=== PATIENT | male | born 1960 | race African-American/Black ===

== ENCOUNTER 2016-10-16 16:39 | Inpatient (IN) | payer MEDICAID ==
[~2016-10-16] VITALS: Ht 180.3 cm; Wt 96.2 kg
[~2016-10-16 16:39] MED LIST: ASPI-1035 PO; ATOR10TA PO; CARV6.2548 PO; DIGO250T81 PO; FLUT1DIS3 INH; FURO40TA5 PO; LISI40TA4 PO; POTA20TA82 PO; SPIR25TA4 PO
[2016-10-16 17:48] LABS: BASOPHILS % 1.1 % (0.0-2.0); EOSINOPHILS % 6.9 % (0.0-5.0); HEMATOCRIT. 44.7 % (42.0-52.0); HEMOGLOBIN. 14.8 g/dL (14.0-18.0); LYMPHOCYTES % 37.9 % (20.0-50.0); MEAN CORPUSCULAR HEMOGLOBIN 29.3 pg (28.0-32.0); MEAN CORPUSCULAR VOLUME 88.8 fL (80.0-94.0); MEAN PLATELET VOLUME 9.8 fl (7.4-10.4); MONOCYTES % 6.6 % (2.0-8.0); NEUTROPHILS % 47.5 % (40.0-76.0); PLATELET 111 x1000/uL (130-400); RED BLOOD CELL COUNT 5.04 mill/uL (4.7-6.1); RED CELL DISTRIBUTION WIDTH 16.2 % (11.6-14.6); WHITE BLOOD COUNT 5.7 x1000/uL (4.5-11.0)
[2016-10-16 17:56] LABS: INR 1.1; PROTHROMBIN TIME 10.9 sec
[2016-10-16 18:02] LABS: ALANINE AMINOTRANSFERASE 16 IU/L (13-61); ALBUMIN 3.6 g/dL (3.4-5.0); ANION GAP 13; CALCIUM 8.6 mg/dL (8.5-10.1); CARBON DIOXIDE 23 mEq/L (21-32); CHLORIDE 112 mEq/L (98-107); INDEX HEMOLYSI 1 (1-3); INDEX ICTERIC 1 (1-4); INDEX LIPEMIC 1 (1-3); NT PRO B-TYPE NATRIURETIC PEP 777 pg/mL (5-125); TROPONIN I 0.04 ng/mL (0.00-0.04); UREA NITROGEN BLOOD 18 mg/dL (7-21); eGFR > 60 mL/min (>60)
[2016-10-16 18:18] LABS: DIGOXIN 0.1 ng/mL (0.9-2.0)
[2016-10-16] MEDS ORDERED: ASPIRIN 81MG TABLET PO ONE (20:30)
[2016-10-16 23:15] VITALS: BP 169/118
[2016-10-16] MEDS ORDERED: ALBU2.5V13 IH (23:19)
[2016-10-16] MEDS ORDERED: Proair HFA INH (23:19)
[2016-10-16 23:30] VITALS: BP 169/118
[2016-10-16] MEDS ORDERED: IPRATROPIUM/ALBUTEROL 0.5-3(2.5)MG/3ML NEB HHN PRN (23:30)
[2016-10-16] MEDS ORDERED: MEDICATION NOT ON FORMULARY EA (Fluticasone/Salmeterol (Advair 250-50 Diskus) 1 PUFF) INH SCH (23:30)
[2016-10-16] MEDS ORDERED: MORPHINE SULFATE 2 MG/ML CPJ (NOT FOR IM USE) IV PRN (23:30)
[2016-10-16] MEDS ORDERED: CLONIDINE 0.1MG TABLET PO PRN (23:30)
[2016-10-16] MEDS: CARVEDILOL 6.25 MG TABLET PO SCH (23:42)
[2016-10-17] MEDS: ALBUTEROL (0.083%) 2.5MG/3ML NEB HHN SCH ×4 (01:46→20:39)
[2016-10-17 04:00] VITALS: BP 136/84
[2016-10-17] MEDS ORDERED: ALBUTEROL (0.083%) 2.5MG/3ML NEB HHN SCH (06:00)
[2016-10-17 06:06] LABS: ANION GAP 15; CALCIUM 8.3 mg/dL (8.5-10.1); CARBON DIOXIDE 21 mEq/L (21-32); CHLORIDE 113 mEq/L (98-107); INDEX HEMOLYSI 1 (1-3); INDEX ICTERIC 1 (1-4); INDEX LIPEMIC 1 (1-3); LDL CHOLESTEROL 106 mg/dL (5-100); UREA NITROGEN BLOOD 17 mg/dL (7-21); eGFR > 60 mL/min (>60)
[2016-10-17 07:13] LABS: BASOPHILS % 1.1 % (0.0-2.0); EOSINOPHILS % 8.1 % (0.0-5.0); HEMOGLOBIN. 14.7 g/dL (14.0-18.0); LYMPHOCYTES % 43.9 % (20.0-50.0); MEAN CORPUSCULAR HEMOGLOBIN 29.4 pg (28.0-32.0); MEAN CORPUSCULAR HGB CONC 33.3 g/dL (31.0-37.0); MEAN CORPUSCULAR VOLUME 88.2 fL (80.0-94.0); MEAN PLATELET VOLUME 10.2 fl (7.4-10.4); MONOCYTES % 7.5 % (2.0-8.0); NEUTROPHILS % 39.4 % (40.0-76.0); PLATELET 115 x1000/uL (130-400); RED BLOOD CELL COUNT 4.99 mill/uL (4.7-6.1); RED CELL DISTRIBUTION WIDTH 15.9 % (11.6-14.6); WHITE BLOOD COUNT 5.6 x1000/uL (4.5-11.0)
[2016-10-17] MEDS: BUDESONIDE 0.5MG/2ML NEB HHN SCH ×2 (07:42→20:39)
[2016-10-17 08:00] VITALS: BP 149/111
[2016-10-17 08:31] LABS: *AMPHETAMINES SCREEN URINE NEGATIVE (NEGATIVE); *BARBITURATES SCREEN URINE NEGATIVE (NEGATIVE); *BENZODIAZEPINES SCREEN URINE NEGATIVE (NEGATIVE); *COCAINE SCREEN URINE NEGATIVE (NEGATIVE); CANNABINOID URINE SCREEN PRESUMTIVE POSITIVE (NEGATIVE); ECSTASY MDMA SCREEN URINE NEGATIVE (NEGATIVE); METHADONE URINE SCREEN NEGATIVE (NEGATIVE); OPIATES URINE SCREEN NEGATIVE (NEGATIVE); PHENCYCLIDINE URINE SCREEN NEGATIVE (NEGATIVE)
[2016-10-17] MEDS: FUROSEMIDE 40MG/4ML VIAL IVP SCH (09:13)
[2016-10-17] MEDS: ASPIRIN 81MG EC TABLET PO SCH (09:13)
[2016-10-17] MEDS: POTASSIUM CHLORIDE 20MEQ TABLET SR PO SCH ×2 (09:13→17:08)
[2016-10-17] MEDS: SPIRONOLACTONE 25MG TABLET PO SCH (09:14)
[2016-10-17] MEDS: LISINOPRIL 40MG TABLET PO SCH (09:14)
[2016-10-17] MEDS: CARVEDILOL 6.25 MG TABLET PO SCH ×2 (09:14→17:08)
[2016-10-17] MEDS ORDERED: ALBUTEROL (0.083%) 2.5MG/3ML NEB HHN PRN (11:15)
[2016-10-17] MEDS ORDERED: ALBUTEROL (0.083%) 2.5MG/3ML NEB HHN NR (11:29)
[2016-10-17 12:00] VITALS: BP 133/98
[2016-10-17] MEDS: ISOSORB DINIT/HYDRALAZINE HCL 20/37.5MG TABLET PO SCH ×3 (12:02→22:00)
[2016-10-17] MEDS: NICOTINE 7MG PATCH TD SCH (14:19)
[2016-10-17 16:00] VITALS: BP 102/65
[2016-10-17] MEDS: ACETAMINOPHEN 325MG TABLET PO PRN (16:56)
[2016-10-17] MEDS ORDERED: DIGOXIN 250MCG TABLET PO SCH (18:00)
[2016-10-17 20:00] VITALS: BP 96/63
[2016-10-17] MEDS ORDERED: ATORVASTATIN CALCIUM 10MG TABLET PO SCH ×2 (21:00)
[2016-10-17] MEDS ORDERED: GUAIFENESIN 200MG/10ML SUGAR FREE UDC PO PRN (22:45)
[2016-10-18] VITALS: BP 110/84
[2016-10-18] MEDS: ALBUTEROL (0.083%) 2.5MG/3ML NEB HHN SCH ×2 (02:47→08:27)
[2016-10-18 04:00] VITALS: BP 126/79
[2016-10-18] MEDS: ISOSORB DINIT/HYDRALAZINE HCL 20/37.5MG TABLET PO SCH (06:05)
[2016-10-18] MEDS: ACETAMINOPHEN 325MG TABLET PO PRN (06:06)
[2016-10-18 07:25] LABS: BASOPHILS % 0.8 % (0.0-2.0); EOSINOPHILS % 5.9 % (0.0-5.0); HEMATOCRIT. 44.9 % (42.0-52.0); MEAN CORPUSCULAR HEMOGLOBIN 29.4 pg (28.0-32.0); MEAN CORPUSCULAR HGB CONC 33.5 g/dL (31.0-37.0); MEAN CORPUSCULAR VOLUME 87.8 fL (80.0-94.0); MONOCYTES % 7.1 % (2.0-8.0); NEUTROPHILS % 56.2 % (40.0-76.0); PLATELET 123 x1000/uL (130-400); RED BLOOD CELL COUNT 5.12 mill/uL (4.7-6.1); RED CELL DISTRIBUTION WIDTH 15.8 % (11.6-14.6); WHITE BLOOD COUNT 7.2 x1000/uL (4.5-11.0)
[2016-10-18 07:48] LABS: ANION GAP 15; CALCIUM 8.9 mg/dL (8.5-10.1); CARBON DIOXIDE 22 mEq/L (21-32); CHLORIDE 108 mEq/L (98-107); INDEX HEMOLYSI 1 (1-3); INDEX ICTERIC 1 (1-4); INDEX LIPEMIC 1 (1-3); MAGNESIUM 2.4 mg/dL (1.8-2.4); UREA NITROGEN BLOOD 17 mg/dL (7-21); eGFR > 60 mL/min (>60)
[2016-10-18 08:00] VITALS: BP 101/69
[2016-10-18] MEDS: BUDESONIDE 0.5MG/2ML NEB HHN SCH (08:27)
[2016-10-18] MEDS: POTASSIUM CHLORIDE 20MEQ TABLET SR PO SCH (08:56)
[2016-10-18] MEDS: NICOTINE 7MG PATCH TD SCH (08:56)
[2016-10-18] MEDS: ASPIRIN 81MG EC TABLET PO SCH (08:56)
[2016-10-18] MEDS: SPIRONOLACTONE 25MG TABLET PO SCH (08:56)
[2016-10-18] MEDS: CARVEDILOL 6.25 MG TABLET PO SCH (08:56)
[2016-10-18] MEDS: LISINOPRIL 40MG TABLET PO SCH (08:57)
[2016-10-18] MEDS: FUROSEMIDE 40MG/4ML VIAL IVP SCH (08:57)
[2016-10-18] MEDS ORDERED: FURO40TA5 PO (11:40)
[2016-10-18] MEDS ORDERED: CARV6.2548 PO (11:40)
[2016-10-18] MEDS ORDERED: POTA20TA82 PO (11:40)
[2016-10-18] MEDS ORDERED: [UNRECOGNIZED DRUG - CODE] TD (11:40)
[2016-10-18] MEDS ORDERED: ASPI-1035 PO (11:40)
[2016-10-18] MEDS ORDERED: ATOR10TA PO (11:40)
[2016-10-18] MEDS ORDERED: DIGO250T81 PO (11:40)
[2016-10-18] MEDS ORDERED: SPIR25TA4 PO (11:40)
[2016-10-18] MEDS ORDERED: ALBU2.5V13 IH (11:40)
[2016-10-18] MEDS ORDERED: FLUT1DIS3 INH (11:40)
[2016-10-18] MEDS ORDERED: LISI40TA4 PO (11:40)
[2016-10-18 11:52] VITALS: BP 101/69
[2016-10-18 12:00] VITALS: BP 120/91
== END 2016-10-18 13:40 | disposition home or self-care (01) | DRG 199 ==
LOC: ER 17:47 → 7WST 21:28
PROVIDERS: ADMIT Internal Medicine; ATTEND Internal Medicine
DX: I10 Essential (primary) hypertension (principal); I50.43 Acute on chronic combined systolic (congestive) and diastolic (congestive) heart failure; I42.0 Dilated cardiomyopathy; J44.9 Chronic obstructive pulmonary disease, unspecified; E78.00 Pure hypercholesterolemia, unspecified; E66.9 Obesity, unspecified; F17.210 Nicotine dependence, cigarettes, uncomplicated; E78.5 Hyperlipidemia, unspecified; Z82.49 Family history of ischemic heart disease and other diseases of the circulatory system; Z95.810 Presence of automatic (implantable) cardiac defibrillator; Z79.82 Long term (current) use of aspirin; Z79.899 Other long term (current) drug therapy; Z68.29 Body mass index [BMI] 29.0-29.9, adult
CPT/HCPCS: 36415; 71010; 80048; 80053; 80162; 80305; 83721; 83735; 83880; 84484; 85025; 85610; 87804; 93005; 94640; 99285; J1940; J7611; J7620; J7626

== ENCOUNTER 2017-05-08 18:54 | Inpatient (IN) | payer MEDICAID, OTHER ==
[~2017-05-08] VITALS: Ht 180.3 cm; Wt 95.3 kg
[~2017-05-08 18:54] MED LIST changes: +ALBU2.5V13 IH; -ASPI-1035 PO; +ASPI-1159 PO; +NICO1PAT6 TD
[2017-05-08 21:11] LABS: BASOPHILS % 0.8 % (0.0-2.0); EOSINOPHILS % 5.8 % (0.0-5.0); HEMATOCRIT. 47.1 % (42.0-52.0); HEMOGLOBIN. 15.9 g/dL (14.0-18.0); LYMPHOCYTES % 30.5 % (20.0-50.0); MEAN CORPUSCULAR HEMOGLOBIN 29.2 pg (28.0-32.0); MEAN CORPUSCULAR VOLUME 86.6 fL (80.0-94.0); MEAN PLATELET VOLUME 10.3 fl (7.4-10.4); MONOCYTES % 6.3 % (2.0-8.0); NEUTROPHILS % 56.6 % (40.0-76.0); PLATELET 107 x1000/uL (130-400); RED BLOOD CELL COUNT 5.44 mill/uL (4.7-6.1); RED CELL DISTRIBUTION WIDTH 15.4 % (11.6-14.6)
[2017-05-08 21:17] LABS: D-DIMER 0.94 mg/L FEU (<0.50); INR 1.1; PARTIAL THROMBOPLASTIN TIME 26.6 sec (23.4-31.0); PROTHROMBIN TIME 11.4 sec (9.4-11.6)
[2017-05-08 21:23] LABS: CARBON DIOXIDE 23 mEq/L (21-32); CHLORIDE 111 mEq/L (98-107); CREATINE KINASE 148 IU/L (39-308); TROPONIN I 0.05 ng/mL (0.00-0.04)
[2017-05-09] MEDS ORDERED: MORPHINE SULFATE 4 MG/ML CPJ (NOT FOR IM USE) IV ONE (00:30)
[2017-05-09] MEDS ORDERED: ONDANSETRON HCL 4MG/2ML VIAL IV ONE (00:30)
[2017-05-09 04:40] VITALS: BP 152/110
[2017-05-09 05:00] VITALS: BP 152/110
[2017-05-09] MEDS: SODIUM CHLORIDE 0.9% 1,000 ML IV SCH (07:32)
[2017-05-09 07:36] LABS: CREATINE KINASE MB FRACTION 1.1 ng/mL (0.5-3.6); TROPONIN I 0.05 ng/mL (0.00-0.04)
[2017-05-09 08:29] VITALS: BP 152/114
[2017-05-09] MEDS: AMLODIPINE 10MG TABLET PO SCH ×2 (08:57→21:09)
[2017-05-09 12:00] VITALS: BP 135/105
[2017-05-09] MEDS: ALBUTEROL (0.083%) 2.5MG/3ML NEB HHN SCH ×2 (12:35→20:32)
[2017-05-09 17:00] VITALS: BP 150/116
[2017-05-09 18:10] LABS: CREATINE KINASE MB FRACTION 0.9 ng/mL (0.5-3.6); TROPONIN I 0.05 ng/mL (0.00-0.04)
[2017-05-09] MEDS ORDERED: MORPHINE SULFATE 2 MG/ML CPJ (NOT FOR IM USE) IV PRN (20:30)
[2017-05-09] MEDS ORDERED: CLONIDINE 0.1MG TABLET PO PRN (20:30)
[2017-05-09 21:13] LABS: CARBON DIOXIDE 22 mEq/L (21-32); CHLORIDE 110 mEq/L (98-107)
[2017-05-09 21:32] LABS: BASOPHILS % 0.6 % (0.0-2.0); EOSINOPHILS % 5.6 % (0.0-5.0); HEMATOCRIT. 48.9 % (42.0-52.0); HEMOGLOBIN. 16.4 g/dL (14.0-18.0); MEAN CORPUSCULAR HEMOGLOBIN 29.2 pg (28.0-32.0); MEAN PLATELET VOLUME 10.5 fl (7.4-10.4); MONOCYTES % 6.4 % (2.0-8.0); NEUTROPHILS % 58.4 % (40.0-76.0); PLATELET 110 x1000/uL (130-400); RED BLOOD CELL COUNT 5.62 mill/uL (4.7-6.1); RED CELL DISTRIBUTION WIDTH 15.5 % (11.6-14.6)
[2017-05-10] MEDS: SODIUM CHLORIDE 0.9% 1,000 ML IV SCH (00:17)
[2017-05-10] MEDS: ALBUTEROL (0.083%) 2.5MG/3ML NEB HHN SCH ×4 (01:59→21:21)
[2017-05-10 04:00] VITALS: BP 124/89
[2017-05-10 08:59] VITALS: BP 114/80
[2017-05-10] MEDS: AMLODIPINE 10MG TABLET PO SCH (09:04)
[2017-05-10] MEDS: ASPIRIN 81MG TABLET PO SCH (12:24)
[2017-05-10] MEDS: LOSARTAN POTASSIUM 50 MG TABLET PO SCH (12:24)
[2017-05-10] MEDS: ENOXAPARIN 40MG/0.4ML SYR SUBCUT SCH (12:25)
[2017-05-10 12:38] VITALS: BP 131/83
[2017-05-10 16:14] VITALS: BP 132/95
[2017-05-10 20:00] VITALS: BP 130/98
[2017-05-10] MEDS: CARVEDILOL 6.25 MG TABLET PO SCH (20:57)
[2017-05-11] VITALS: BP 104/69
[2017-05-11] MEDS: ALBUTEROL (0.083%) 2.5MG/3ML NEB HHN SCH ×4 (01:08→21:07)
[2017-05-11 04:00] VITALS: BP 130/98
[2017-05-11] MEDS: ASPIRIN 81MG TABLET PO SCH (08:53)
[2017-05-11] MEDS: ENOXAPARIN 40MG/0.4ML SYR SUBCUT SCH (08:53)
[2017-05-11] MEDS: LOSARTAN POTASSIUM 50 MG TABLET PO SCH (08:53)
[2017-05-11] MEDS: CARVEDILOL 6.25 MG TABLET PO SCH ×2 (08:53→20:32)
[2017-05-11] MEDS: AMLODIPINE 5MG TABLET PO SCH (08:53)
[2017-05-11 12:00] VITALS: BP 126/88
[2017-05-11 16:00] VITALS: BP_SYST 113; BP_SYST 130; BP_DIAS 76; BP_DIAS 89
[2017-05-11 20:00] VITALS: BP 124/89
[2017-05-12] VITALS: BP 100/66
[2017-05-12] MEDS: ALBUTEROL (0.083%) 2.5MG/3ML NEB HHN SCH ×2 (00:07→08:55)
[2017-05-12 04:00] VITALS: BP 109/73
[2017-05-12 07:18] LABS: BASOPHILS % 0.6 % (0.0-2.0); EOSINOPHILS % 8.5 % (0.0-5.0); HEMATOCRIT. 47.1 % (42.0-52.0); HEMOGLOBIN. 15.7 g/dL (14.0-18.0); LYMPHOCYTES % 36.3 % (20.0-50.0); MEAN CORPUSCULAR HEMOGLOBIN 29.3 pg (28.0-32.0); MEAN CORPUSCULAR VOLUME 87.8 fL (80.0-94.0); MEAN PLATELET VOLUME 10.5 fl (7.4-10.4); MONOCYTES % 10.5 % (2.0-8.0); NEUTROPHILS % 44.1 % (40.0-76.0); PLATELET 100 x1000/uL (130-400); RED BLOOD CELL COUNT 5.36 mill/uL (4.7-6.1); RED CELL DISTRIBUTION WIDTH 15.3 % (11.6-14.6)
[2017-05-12 08:00] VITALS: BP 105/75
[2017-05-12 08:54] LABS: CARBON DIOXIDE 26 mEq/L (21-32); CHLORIDE 105 mEq/L (98-107)
[2017-05-12] MEDS: ASPIRIN 81MG TABLET PO SCH (08:57)
[2017-05-12] MEDS: AMLODIPINE 5MG TABLET PO SCH (08:58)
[2017-05-12] MEDS: LOSARTAN POTASSIUM 50 MG TABLET PO SCH (08:58)
[2017-05-12] MEDS: ENOXAPARIN 40MG/0.4ML SYR SUBCUT SCH (08:58)
[2017-05-12] MEDS: CARVEDILOL 6.25 MG TABLET PO SCH (08:58)
[2017-05-12 12:00] VITALS: BP 118/87
== END 2017-05-12 14:40 | disposition home or self-care (01) | DRG 48 ==
LOC: ER 20:00 → 8WST 23:34 → EDBEDREQ 23:47 → EDBEDREQTM 23:47 → ENRESERV 23:48
PROVIDERS: ADMIT Family Medicine; ATTEND Family Medicine
DX: G90.8 Other disorders of autonomic nervous system (principal); I11.0 Hypertensive heart disease with heart failure; I42.0 Dilated cardiomyopathy; I50.32 Chronic diastolic (congestive) heart failure; E78.5 Hyperlipidemia, unspecified; F12.90 Cannabis use, unspecified, uncomplicated; R73.9 Hyperglycemia, unspecified; I25.10 Atherosclerotic heart disease of native coronary artery without angina pectoris; J44.9 Chronic obstructive pulmonary disease, unspecified; Z95.810 Presence of automatic (implantable) cardiac defibrillator; Z87.891 Personal history of nicotine dependence
CPT/HCPCS: 36415; 70450; 71010; 78582; 80048; 80053; 80061; 82550; 82553; 83036; 83690; 83735; 83880; 84439; 84443; 84484; 85025; 85379; 85610; 85730; 93005; 93306; 93880; 93970; 94640; 94664; 96374; 96375; 99285; A9558; J1650; J2270; J2405; J7030; J7611

== ENCOUNTER 2017-06-07 08:08 | Inpatient (IN) | payer MEDICAID, OTHER ==
[~2017-06-07] VITALS: Ht 180.3 cm; Wt 91.2 kg
[2017-06-07] MEDS ORDERED: ASPIRIN 81MG TABLET PO STA (09:05)
[2017-06-07] MEDS ORDERED: METHYLPREDNISOLONE SOD SUCC 125 MG/2 ML VIAL IV STA (09:05)
[2017-06-07] MEDS ORDERED: IPRATROPIUM/ALBUTEROL 0.5-3(2.5)MG/3ML NEB HHN ONE (09:15)
[2017-06-07] MEDS ORDERED: NITROGLYCERIN 0.4MG TABLET SL SL ONE (09:15)
[2017-06-07 09:29] LABS: BASOPHILS % 0.8 % (0.0-2.0); EOSINOPHILS % 4.4 % (0.0-5.0); HEMATOCRIT. 44.8 % (42.0-52.0); HEMOGLOBIN. 14.9 g/dL (14.0-18.0); MEAN CORPUSCULAR VOLUME 87.1 fL (80.0-94.0); MEAN PLATELET VOLUME 10.2 fl (7.4-10.4); MONOCYTES % 8.4 % (2.0-8.0); NEUTROPHILS % 61.4 % (40.0-76.0); PLATELET 114 x1000/uL (130-400); RED BLOOD CELL COUNT 5.14 mill/uL (4.7-6.1); RED CELL DISTRIBUTION WIDTH 15.4 % (11.6-14.6)
[2017-06-07 09:43] LABS: CARBON DIOXIDE 26 mEq/L (21-32); CHLORIDE 108 mEq/L (98-107); TROPONIN I 0.11 ng/mL (0.00-0.04)
[2017-06-07 09:51] LABS: D-DIMER 0.58 mg/L FEU (<0.50); INR 1.2; PARTIAL THROMBOPLASTIN TIME 27.4 sec (23.4-31.0); PROTHROMBIN TIME 12.3 sec (9.4-11.6)
[2017-06-07] MEDS ORDERED: POTASSIUM CHLORIDE 20MEQ TABLET SR PO NR (14:30)
[2017-06-07 15:30] VITALS: BP 152/105
[2017-06-07 16:00] VITALS: BP 152/105
[2017-06-07] MEDS ORDERED: MAGNESIUM HYDROXIDE 400MG/5ML 30ML UDC PO PRN (16:00)
[2017-06-07] MEDS ORDERED: CLONIDINE 0.1MG TABLET PO PRN (16:00)
[2017-06-07] MEDS ORDERED: MAGNESIUM/ALUMINUM HYDROXIDE/SIMETHICONE 30ML UDC PO PRN (16:00)
[2017-06-07] MEDS ORDERED: IPRATROPIUM/ALBUTEROL 0.5-3(2.5)MG/3ML NEB HHN SCH (16:00)
[2017-06-07] MEDS ORDERED: TEMAZEPAM 15MG CAPSULE PO PRN (16:00)
[2017-06-07] MEDS ORDERED: IPRATROPIUM/ALBUTEROL 0.5-3(2.5)MG/3ML NEB INH PRN (16:00)
[2017-06-07] MEDS ORDERED: POTASSIUM CHLORIDE 10MEQ TABLET SR PO SCH (16:00)
[2017-06-07] MEDS ORDERED: DIPHENHYDRAMINE 50MG/ML VIAL IV PRN (16:00)
[2017-06-07] MEDS ORDERED: ACETAMINOPHEN 325MG TABLET PO PRN (16:00)
[2017-06-07] MEDS ORDERED: FUROSEMIDE 40MG/4ML VIAL IVP SCH ×2 (16:00→17:00)
[2017-06-07] MEDS ORDERED: ONDANSETRON HCL 4MG/2ML VIAL IV PRN (16:00)
[2017-06-07] MEDS ORDERED: LISINOPRIL 5MG TABLET PO SCH (17:00)
[2017-06-07] MEDS: DOCUSATE SODIUM 100MG CAPSULE PO SCH (17:21)
[2017-06-07] MEDS: DIGOXIN 250MCG TABLET PO SCH (17:21)
[2017-06-07] MEDS: ENOXAPARIN 40MG/0.4ML SYR SUBCUT SCH (17:21)
[2017-06-07] MEDS: SPIRONOLACTONE 25MG TABLET PO SCH (17:22)
[2017-06-07] MEDS ORDERED: DIGOXIN 250MCG TABLET PO SCH (18:00)
[2017-06-07] MEDS: BENZONATATE 100MG CAPSULE PO SCH ×2 (18:49→23:43)
[2017-06-07] MEDS: IPRATROPIUM/ALBUTEROL 0.5-3(2.5)MG/3ML NEB HHN SCH (19:54)
[2017-06-07 20:00] VITALS: BP 135/99
[2017-06-07] MEDS ORDERED: ATORVASTATIN CALCIUM 20MG TABLET PO SCH (21:00)
[2017-06-07] MEDS ORDERED: AZITHROMYCIN 500 MG TABLET PO SCH (21:30)
[2017-06-07] MEDS ORDERED: MAGNESIUM 2 G PREMIX 50 ML IV PRN (21:45)
[2017-06-07] MEDS: CARVEDILOL 12.5MG TABLET PO SCH (21:56)
[2017-06-07] MEDS: ATORVASTATIN CALCIUM 20MG TABLET PO SCH (21:56)
[2017-06-07] MEDS: GUAIFENESIN 600MG ER TABLET PO SCH (21:56)
[2017-06-07] MEDS: SODIUM CHLORIDE 0.9% INJ 3ML FLUSH IVF SCH (21:57)
[2017-06-08] MEDS: IPRATROPIUM/ALBUTEROL 0.5-3(2.5)MG/3ML NEB HHN SCH ×4 (01:57→20:23)
[2017-06-08 04:00] VITALS: BP 114/57
[2017-06-08] MEDS: FUROSEMIDE 40MG/4ML VIAL IVP SCH ×2 (05:13→15:13)
[2017-06-08] MEDS: SODIUM CHLORIDE 0.9% INJ 3ML FLUSH IVF SCH ×3 (05:18→22:09)
[2017-06-08 07:43] LABS: BASOPHILS % 0.1 % (0.0-2.0); EOSINOPHILS % 0.2 % (0.0-5.0); HEMATOCRIT. 41.9 % (42.0-52.0); MEAN CORPUSCULAR HEMOGLOBIN 28.9 pg (28.0-32.0); MEAN CORPUSCULAR VOLUME 86.8 fL (80.0-94.0); MEAN PLATELET VOLUME 10.7 fl (7.4-10.4); MONOCYTES % 9.3 % (2.0-8.0); NEUTROPHILS % 70.4 % (40.0-76.0); PLATELET 114 x1000/uL (130-400); RED BLOOD CELL COUNT 4.83 mill/uL (4.7-6.1); RED CELL DISTRIBUTION WIDTH 15.5 % (11.6-14.6)
[2017-06-08 07:46] LABS: CARBON DIOXIDE 29 mEq/L (21-32); CHLORIDE 106 mEq/L (98-107); TROPONIN I 0.05 ng/mL (0.00-0.04)
[2017-06-08 07:52] VITALS: BP 124/88
[2017-06-08] MEDS: BENZONATATE 100MG CAPSULE PO SCH ×2 (08:47→15:12)
[2017-06-08] MEDS: GUAIFENESIN 600MG ER TABLET PO SCH ×2 (08:47→22:04)
[2017-06-08] MEDS: DOCUSATE SODIUM 100MG CAPSULE PO SCH ×2 (08:48→17:13)
[2017-06-08] MEDS: LISINOPRIL 10MG TABLET PO SCH ×2 (08:48→22:03)
[2017-06-08] MEDS: ASPIRIN 81MG EC TABLET PO SCH (08:49)
[2017-06-08] MEDS: POTASSIUM CHLORIDE 20MEQ TABLET SR PO SCH ×2 (08:49→17:13)
[2017-06-08] MEDS: SPIRONOLACTONE 25MG TABLET PO SCH (08:49)
[2017-06-08] MEDS: CARVEDILOL 12.5MG TABLET PO SCH ×2 (08:49→22:04)
[2017-06-08] MEDS ORDERED: ASPIRIN 81MG EC TABLET PO SCH (09:00)
[2017-06-08] MEDS ORDERED: POTASSIUM CHLORIDE 20MEQ TABLET SR PO SCH (09:00)
[2017-06-08] MEDS ORDERED: SPIRONOLACTONE 25MG TABLET PO SCH (09:00)
[2017-06-08] MEDS ORDERED: LISINOPRIL 20MG TABLET PO SCH (09:00)
[2017-06-08 12:00] VITALS: BP 104/72
[2017-06-08] MEDS: ENOXAPARIN 40MG/0.4ML SYR SUBCUT SCH (15:13)
[2017-06-08 16:00] VITALS: BP 115/82
[2017-06-08] MEDS: DIGOXIN 250MCG TABLET PO SCH (17:14)
[2017-06-08 20:00] VITALS: BP 121/95
[2017-06-08] MEDS: ATORVASTATIN CALCIUM 20MG TABLET PO SCH (22:03)
[2017-06-09] VITALS: BP 96/63
[2017-06-09] MEDS: BENZONATATE 100MG CAPSULE PO SCH ×2 (01:22→09:58)
[2017-06-09] MEDS: IPRATROPIUM/ALBUTEROL 0.5-3(2.5)MG/3ML NEB HHN SCH ×2 (01:41→09:39)
[2017-06-09 04:00] VITALS: BP 107/78
[2017-06-09] MEDS: SODIUM CHLORIDE 0.9% INJ 3ML FLUSH IVF SCH ×2 (05:24→13:26)
[2017-06-09] MEDS: FUROSEMIDE 40MG/4ML VIAL IVP SCH (05:25)
[2017-06-09 08:00] VITALS: BP 103/78
[2017-06-09] MEDS: LISINOPRIL 10MG TABLET PO SCH (09:00)
[2017-06-09] MEDS: CARVEDILOL 12.5MG TABLET PO SCH (09:00)
[2017-06-09] MEDS: DOCUSATE SODIUM 100MG CAPSULE PO SCH (09:56)
[2017-06-09] MEDS: GUAIFENESIN 600MG ER TABLET PO SCH (09:56)
[2017-06-09] MEDS: POTASSIUM CHLORIDE 20MEQ TABLET SR PO SCH (09:56)
[2017-06-09] MEDS: SPIRONOLACTONE 25MG TABLET PO SCH (09:56)
[2017-06-09] MEDS: ASPIRIN 81MG EC TABLET PO SCH (09:56)
[2017-06-09 12:00] VITALS: BP 90/68
[2017-06-09 16:50] VITALS: BP 126/95
[2017-06-09] MEDS ORDERED: FUROSEMIDE 40MG TABLET PO SCH (17:00)
[2017-06-09] MEDS ORDERED: POTASSIUM CHLORIDE 20MEQ TABLET SR PO SCH (17:00)
== END 2017-06-09 17:55 | disposition home or self-care (01) | DRG 133 ==
LOC: EDBEDREQ 11:19 → ER 11:28 → 5WST 11:45 → ENRESERV 13:50
PROVIDERS: ADMIT Internal Medicine; ATTEND Internal Medicine
DX: J96.00 Acute respiratory failure, unspecified whether with hypoxia or hypercapnia (principal); I50.23 Acute on chronic systolic (congestive) heart failure; I42.0 Dilated cardiomyopathy; J44.1 Chronic obstructive pulmonary disease with (acute) exacerbation; J44.9 Chronic obstructive pulmonary disease, unspecified; J06.9 Acute upper respiratory infection, unspecified; I11.0 Hypertensive heart disease with heart failure; E86.1 Hypovolemia; K59.00 Constipation, unspecified; G47.00 Insomnia, unspecified; E87.6 Hypokalemia; I35.1 Nonrheumatic aortic (valve) insufficiency; E78.5 Hyperlipidemia, unspecified; F17.210 Nicotine dependence, cigarettes, uncomplicated; Z82.49 Family history of ischemic heart disease and other diseases of the circulatory system; Z83.3 Family history of diabetes mellitus; Z79.82 Long term (current) use of aspirin; Z79.899 Other long term (current) drug therapy; Z95.810 Presence of automatic (implantable) cardiac defibrillator
CPT/HCPCS: 36415; 71010; 80048; 80053; 83690; 83735; 83880; 84484; 85025; 85379; 85610; 85730; 93005; 94640; 96374; 99285; J1650; J1940; J2930; J7620

== ENCOUNTER 2017-09-10 15:34 | Inpatient (IN) | payer MEDICAID ==
[~2017-09-10] VITALS: Ht 175.3 cm; Wt 86.0 kg
[2017-09-10] MEDS ORDERED: FUROSEMIDE 40MG/4ML VIAL IV STA (16:14)
[2017-09-10] MEDS ORDERED: IPRATROPIUM BROMIDE (0.02%) 0.5MG/2.5ML NEB HHN STA (16:14)
[2017-09-10] MEDS ORDERED: ALBUTEROL (0.083%) 2.5MG/3ML NEB HHN STA (16:14)
[2017-09-10] MEDS ORDERED: ASPIRIN 81MG TABLET PO STA (16:14)
[2017-09-10] MEDS ORDERED: MORPHINE SULFATE 4 MG/ML CPJ (NOT FOR IM USE) IV STA (16:14)
[2017-09-10] MEDS ORDERED: NITROGLYCERIN OINT 1GM/INCH UDPKT TD STA (16:14)
[2017-09-10] MEDS ORDERED: ONDANSETRON HCL 4MG/2ML VIAL IV STA (16:14)
[2017-09-10] MEDS ORDERED: NITROGLYCERIN 0.4MG TABLET SL SL PRN (16:15)
[2017-09-10 16:41] LABS: BASOPHILS % 0.7 % (0.0-2.0); EOSINOPHILS % 5.5 % (0.0-5.0); HEMATOCRIT. 45.5 % (42.0-52.0); HEMOGLOBIN. 15.1 g/dL (14.0-18.0); LYMPHOCYTES % 45.1 % (20.0-50.0); MEAN CORPUSCULAR HEMOGLOBIN 28.7 pg (28.0-32.0); MEAN CORPUSCULAR VOLUME 86.6 fL (80.0-94.0); MEAN PLATELET VOLUME 9.5 fl (7.4-10.4); MONOCYTES % 6.7 % (2.0-8.0); PLATELET 121 x1000/uL (130-400); RED BLOOD CELL COUNT 5.26 mill/uL (4.7-6.1); RED CELL DISTRIBUTION WIDTH 16.2 % (11.6-14.6)
[2017-09-10 16:48] LABS: PARTIAL THROMBOPLASTIN TIME 25.7 sec (23.4-31.0); PROTHROMBIN TIME 10.9 sec (9.4-11.6)
[2017-09-10 16:56] LABS: CARBON DIOXIDE 25 mEq/L (21-32); CHLORIDE 109 mEq/L (98-107); TROPONIN I 0.06 ng/mL (0.00-0.04)
[2017-09-10 17:30] LABS: DIGOXIN < 0.1 ng/mL (0.9-2.0)
[2017-09-10] MEDS ORDERED: ONDANSETRON HCL 4MG/2ML VIAL IV PRN (17:45)
[2017-09-10] MEDS ORDERED: HYDROCODONE/ACETAMINOPHEN 5/325MG TABLET PO PRN (17:45)
[2017-09-10] MEDS ORDERED: LORAZEPAM 0.5MG TABLET PO PRN (17:45)
[2017-09-10] MEDS ORDERED: ACETAMINOPHEN 325MG TABLET PO PRN (17:45)
[2017-09-10] MEDS ORDERED: MORPHINE SULFATE 2 MG/ML CPJ (NOT FOR IM USE) IV PRN (17:45)
[2017-09-10] MEDS ORDERED: MAGNESIUM/ALUMINUM HYDROXIDE/SIMETHICONE 30ML UDC PO PRN (17:45)
[2017-09-10] MEDS ORDERED: GUAIFENESIN 200MG/10ML SUGAR FREE UDC PO PRN (17:45)
[2017-09-10] MEDS ORDERED: CLONIDINE 0.1MG TABLET PO PRN (17:45)
[2017-09-10] MEDS ORDERED: DIPHENHYDRAMINE 50MG/ML VIAL IV PRN (17:45)
[2017-09-10] MEDS ORDERED: DOCUSATE SODIUM 100MG CAPSULE PO PRN (17:45)
[2017-09-10] MEDS ORDERED: NA PHOS,M-B/NA PHOS,DI-BA ENEMA 118ML PR PRN (19:00)
[2017-09-10 20:38] LABS: CARBON DIOXIDE 31 mEq/L (21-32); CHLORIDE 106 mEq/L (98-107)
[2017-09-11] VITALS (10 sets, daily range): BP systolic 129–165; BP diastolic 53–111
[2017-09-11 07:24] LABS: BASOPHILS % 0.7 % (0.0-2.0); EOSINOPHILS % 5.6 % (0.0-5.0); HEMATOCRIT. 42.5 % (42.0-52.0); HEMOGLOBIN. 14.2 g/dL (14.0-18.0); LYMPHOCYTES % 51.4 % (20.0-50.0); MEAN CORPUSCULAR HEMOGLOBIN 28.8 pg (28.0-32.0); MEAN CORPUSCULAR VOLUME 86.3 fL (80.0-94.0); MEAN PLATELET VOLUME 10.2 fl (7.4-10.4); NEUTROPHILS % 35.3 % (40.0-76.0); PLATELET 121 x1000/uL (130-400); RED BLOOD CELL COUNT 4.93 mill/uL (4.7-6.1); RED CELL DISTRIBUTION WIDTH 15.8 % (11.6-14.6)
[2017-09-11 07:43] LABS: CARBON DIOXIDE 28 mEq/L (21-32); CHLORIDE 105 mEq/L (98-107); HDL CHOLESTEROL 30 mg/dL (40-59); LDL CHOLESTEROL 115 mg/dL (5-100); T4 FREE 0.97 ng/dL (0.76-1.46)
[2017-09-11] MEDS ORDERED: ENOXAPARIN 30MG/0.3ML SYR SUBCUT SCH (09:00)
[2017-09-11] MEDS ORDERED: ASPIRIN 81MG EC TABLET PO SCH (09:00)
[2017-09-11 15:32] LABS: CREATINE KINASE MB FRACTION 1.3 ng/mL (0.5-3.6); TROPONIN I 0.04 ng/mL (0.00-0.04)
[2017-09-11] MEDS: IPRATROPIUM/ALBUTEROL 0.5-3(2.5)MG/3ML NEB INH PRN (15:50)
[2017-09-11] MEDS ORDERED: CARVEDILOL 3.125 MG TABLET PO SCH (21:00)
[2017-09-12] VITALS: BP 140/102
[2017-09-12 00:41] LABS: CREATINE KINASE MB FRACTION 0.9 ng/mL (0.5-3.6)
[2017-09-12] MEDS: IPRATROPIUM/ALBUTEROL 0.5-3(2.5)MG/3ML NEB INH PRN (00:41)
[2017-09-12 00:51] LABS: TROPONIN I 0.05 ng/mL (0.00-0.04)
[2017-09-12 04:00] VITALS: BP 149/105
[2017-09-12] MEDS ORDERED: LOSARTAN POTASSIUM 25 MG TABLET PO SCH (08:04)
[2017-09-12 08:59] VITALS: BP 130/102
[2017-09-12] MEDS ORDERED: CARVEDILOL 6.25 MG TABLET PO SCH (09:00)
[2017-09-12] MEDS ORDERED: ENOXAPARIN 40MG/0.4ML SYR SUBCUT SCH (09:00)
[2017-09-12] MEDS ORDERED: ASPIRIN 81MG TABLET PO SCH (09:00)
[2017-09-12 09:06] LABS: CREATINE KINASE MB FRACTION 1.1 ng/mL (0.5-3.6); TROPONIN I 0.04 ng/mL (0.00-0.04)
[2017-09-12 09:50] VITALS: BP 128/89
== END 2017-09-12 09:50 | disposition home or self-care (01) | DRG 194 ==
LOC: ER 16:32 → 5EST 16:53 → EDBEDREQTM 16:55 → EDBEDREQ 16:55 → ENRESERV 23:25 → 5EST 09-11 20:00 → 6WST 09-11 22:40
PROVIDERS: ADMIT Internal Medicine; ATTEND Internal Medicine
DX: I11.0 Hypertensive heart disease with heart failure (principal); J98.51 Mediastinitis; I50.41 Acute combined systolic (congestive) and diastolic (congestive) heart failure; J44.9 Chronic obstructive pulmonary disease, unspecified; R07.9 Chest pain, unspecified; I25.10 Atherosclerotic heart disease of native coronary artery without angina pectoris; E78.00 Pure hypercholesterolemia, unspecified; E78.5 Hyperlipidemia, unspecified; F10.10 Alcohol abuse, uncomplicated; F17.200 Nicotine dependence, unspecified, uncomplicated; Z79.82 Long term (current) use of aspirin; Z79.899 Other long term (current) drug therapy; Z95.0 Presence of cardiac pacemaker
CPT/HCPCS: 36415; 71010; 80048; 80053; 80061; 80162; 82550; 82553; 83036; 83690; 83880; 84439; 84443; 84484; 85025; 85379; 85610; 85730; 93005; 93306; 93970; 94640; 94664; 96374; 96375; 99291; J1650; J1940; J2270; J2405; J7620

== ENCOUNTER 2020-04-06 02:55 | Inpatient (IN) | payer MEDICAID ==
[~2020-04-06] VITALS: Ht 172.7 cm; Wt 78.0 kg
[~2020-04-06 02:55] MED LIST changes: -ASPI-1159 PO; +ASPI-1497 PO; +DIGO250T PO; -DIGO250T81 PO; -SPIR25TA4 PO; +SPIR25TA6 PO
[2020-04-06] MEDS ORDERED: NITROGLYCERIN OINT 1GM/INCH UDPKT TD ONE (03:15)
[2020-04-06] MEDS ORDERED: FUROSEMIDE 40MG/4ML VIAL IV ONE (03:15)
[2020-04-06] MEDS ORDERED: METOPROLOL TARTRATE 50MG TABLET PO ONE (03:15)
[2020-04-06] MEDS: NITROGLYCERIN 0.4MG TABLET SL SL PRN ×2 (03:18→03:42)
[2020-04-06] MEDS ORDERED: METOPROLOL TARTRATE 5MG/5ML VIAL IV ONE (03:18)
[2020-04-06 03:31] LABS: EOSINOPHILS % 2.9 % (0.0-5.0); HEMATOCRIT. 49.5 % (42.0-52.0); HEMOGLOBIN. 15.8 g/dL (14.0-18.0); LYMPHOCYTES % 47.2 % (20.0-50.0); MEAN CORPUSCULAR HEMOGLOBIN 29.7 pg (28.0-32.0); MEAN CORPUSCULAR VOLUME 93.2 fL (80.0-94.0); MEAN PLATELET VOLUME 9.1 fl (7.4-10.4); MONOCYTES % 6.3 % (2.0-8.0); NEUTROPHILS % 42.6 % (40.0-76.0); PLATELET 190 x1000/uL (130-400); RED BLOOD CELL COUNT 5.31 mill/uL (4.7-6.1); RED CELL DISTRIBUTION WIDTH 25.4 % (11.6-14.6)
[2020-04-06 03:33] LABS: CHLORIDE 111 mEq/L (98-107)
[2020-04-06] MEDS: METOPROLOL TARTRATE 5MG/5ML VIAL IV SCH ×3 (03:33→05:13)
[2020-04-06 06:16] LABS: PLATELET ESTIMATE NORMAL
[2020-04-06] MEDS ORDERED: KETOROLAC 15MG/ML VIAL IV PRN (07:00)
[2020-04-06] MEDS ORDERED: NITROGLYCERIN 0.4MG TABLET SL SL PRN (07:00)
[2020-04-06] MEDS ORDERED: GUAIFENESIN 200MG/10ML SUGAR FREE UDC PO PRN (07:00)
[2020-04-06] MEDS ORDERED: IPRATROPIUM/ALBUTEROL 0.5-3(2.5)MG/3ML NEB ORI PRN (07:00)
[2020-04-06] MEDS ORDERED: ACETAMINOPHEN 325MG TABLET PO PRN ×2 (07:00)
[2020-04-06] MEDS ORDERED: CLONIDINE 0.1MG TABLET PO PRN (07:00)
[2020-04-06] MEDS ORDERED: ONDANSETRON HCL 4MG/2ML INJ IV PRN (07:00)
[2020-04-06] MEDS ORDERED: DOCUSATE SODIUM 100MG CAPSULE PO PRN (07:00)
[2020-04-06] MEDS ORDERED: MAGNESIUM/ALUMINUM HYDROXIDE/SIMETHICONE 30ML UDC PO PRN (07:00)
[2020-04-06 07:40] LABS: DIGOXIN 0.2 ng/mL (0.9-2.0)
[2020-04-06] MEDS ORDERED: FUROSEMIDE 40MG/4ML VIAL IVP SCH (09:00)
[2020-04-06 09:40] VITALS: BP 117/87
[2020-04-06] MEDS: ASPIRIN 325MG EC TABLET PO SCH (11:21)
[2020-04-06] MEDS: SPIRONOLACTONE 25MG TABLET PO SCH ×2 (11:24→20:24)
[2020-04-06] MEDS: POTASSIUM CHLORIDE 20MEQ TABLET SR PO SCH (11:25)
[2020-04-06] MEDS: ENOXAPARIN 80MG/0.8ML SYR SUBCUT SCH ×2 (11:25→20:25)
[2020-04-06] MEDS: FAMOTIDINE 20MG TABLET PO SCH ×2 (11:25→20:24)
[2020-04-06] MEDS: FUROSEMIDE 100MG/10ML VIAL IVP SCH ×2 (11:26→20:24)
[2020-04-06] MEDS: ASCORBIC ACID 500 MG TABLET PO SCH ×2 (11:26→20:25)
[2020-04-06 12:00] VITALS: BP 100/47
[2020-04-06 16:00] VITALS: BP 111/78
[2020-04-06] MEDS: CARVEDILOL 3.125 MG TABLET PO SCH (17:54)
[2020-04-06] MEDS: DIGOXIN 250MCG TABLET PO SCH (17:55)
[2020-04-06 20:12] VITALS: BP 107/68
[2020-04-06] MEDS ORDERED: ZOLPIDEM TARTRATE 5MG TABLET PO PRN (21:00)
[2020-04-07 02:16] VITALS: BP 110/58
[2020-04-07 06:16] VITALS: BP 110/58
[2020-04-07] MEDS: CARVEDILOL 3.125 MG TABLET PO SCH ×2 (06:17→17:58)
[2020-04-07 07:10] LABS: INR 1.1; PROTHROMBIN TIME 11.7 sec (9.6-11.0)
[2020-04-07 08:00] VITALS: BP 135/76
[2020-04-07] MEDS: ASPIRIN 325MG EC TABLET PO SCH (09:43)
[2020-04-07] MEDS: FUROSEMIDE 100MG/10ML VIAL IVP SCH ×2 (09:44→20:35)
[2020-04-07] MEDS: SPIRONOLACTONE 25MG TABLET PO SCH ×2 (09:45→20:35)
[2020-04-07] MEDS: FAMOTIDINE 20MG TABLET PO SCH ×2 (09:46→20:32)
[2020-04-07] MEDS: POTASSIUM CHLORIDE 20MEQ TABLET SR PO SCH (09:46)
[2020-04-07] MEDS: ENOXAPARIN 80MG/0.8ML SYR SUBCUT SCH ×2 (09:48→20:35)
[2020-04-07] MEDS: ASCORBIC ACID 500 MG TABLET PO SCH ×2 (09:50→20:32)
[2020-04-07 11:42] VITALS: BP 147/68
[2020-04-07 16:00] VITALS: BP 130/74
[2020-04-07] MEDS: DIGOXIN 250MCG TABLET PO SCH (17:56)
[2020-04-07 20:00] VITALS: BP 126/65
[2020-04-08] VITALS: BP 124/81
[2020-04-08 04:00] VITALS: BP 133/94
[2020-04-08] MEDS: CARVEDILOL 3.125 MG TABLET PO SCH (05:23)
[2020-04-08 08:00] VITALS: BP 123/76
[2020-04-08] MEDS: FAMOTIDINE 20MG TABLET PO SCH (08:50)
[2020-04-08] MEDS: ASCORBIC ACID 500 MG TABLET PO SCH (08:50)
[2020-04-08] MEDS: POTASSIUM CHLORIDE 20MEQ TABLET SR PO SCH (08:51)
[2020-04-08] MEDS: SPIRONOLACTONE 25MG TABLET PO SCH (08:52)
[2020-04-08] MEDS: FUROSEMIDE 100MG/10ML VIAL IVP SCH (08:52)
[2020-04-08] MEDS: ASPIRIN 325MG EC TABLET PO SCH (08:52)
[2020-04-08] MEDS: ENOXAPARIN 80MG/0.8ML SYR SUBCUT SCH (08:53)
[2020-04-08 10:09] VITALS: BP 139/94
== END 2020-04-08 11:30 | disposition home or self-care (01) | DRG 194 ==
LOC: ER 02:55 → 5EST 04:21 → EDBEDREQ 04:23 → EDBEDREQTM 04:23 → EDBEDREQSVC 04:23 → ENRESERV 07:34 → ER 09:30
PROVIDERS: ADMIT Internal Medicine; ATTEND Internal Medicine
DX: I11.0 Hypertensive heart disease with heart failure (principal); I48.91 Unspecified atrial fibrillation; E78.00 Pure hypercholesterolemia, unspecified; E78.1 Pure hyperglyceridemia; E78.5 Hyperlipidemia, unspecified; F17.210 Nicotine dependence, cigarettes, uncomplicated; I42.0 Dilated cardiomyopathy; I47.1 Supraventricular tachycardia; I48.92 Unspecified atrial flutter; I50.43 Acute on chronic combined systolic (congestive) and diastolic (congestive) heart failure; J44.9 Chronic obstructive pulmonary disease, unspecified; Z79.899 Other long term (current) drug therapy; Z91.14 Patient's other noncompliance with medication regimen; Z95.810 Presence of automatic (implantable) cardiac defibrillator; Z79.82 Long term (current) use of aspirin
CPT/HCPCS: 36415; 71045; 80053; 80061; 80162; 83036; 83735; 83880; 84484; 85025; 93005; 93306; 93970; J1650; J1940; J3490

== ENCOUNTER 2023-08-21 04:25 | Inpatient (IN) | payer MEDICAID ==
[~2023-08-21] VITALS: Ht 177.8 cm; Wt 58.5 kg
[2023-08-21] VITALS (10 sets, daily range): BP systolic 81–107; BP diastolic 64–96; PULSE 111–120; RESP 17–30; TEMP 97.8
[~2023-08-21 04:25] MED LIST changes: -CARV6.2548 PO; +COR3 MT; -DIGO250T PO; +LISI40TA13 PO; -LISI40TA4 PO; -NICO1PAT6 TD; +POTA-204 PO; -POTA20TA82 PO
[2023-08-21] MEDS ORDERED: IPRATROPIUM BROMIDE (0.02%) 0.5MG/2.5ML NEB HHN STA (04:33)
[2023-08-21] MEDS ORDERED: METHYLPREDNISOLONE SOD SUCC 125MG/2ML (ACT-O-VIAL) IV STA (04:33)
[2023-08-21] MEDS ORDERED: AZITHROMYCIN 500MG/250ML 250 ML IV ONE (04:45)
[2023-08-21] MEDS ORDERED: MAGNESIUM 2 G PREMIX 50 ML IV ONE (04:45)
[2023-08-21] MEDS ORDERED: CEFTRIAXONE 1GM PREMIX 50 ML IV ONE (04:45)
[2023-08-21] MEDS ORDERED: ALBUTEROL (0.083%) 2.5MG/3ML NEB HHN SCH (05:00)
[2023-08-21 05:01] LABS: BASOPHILS % 0.8 % (0.0-2.0); EOSINOPHILS % 9.5 % (0.0-5.0); HEMATOCRIT. 30.2 % (42.0-52.0); HEMOGLOBIN. 9.2 g/dL (14.0-18.0); LYMPHOCYTES % 19.9 % (20.0-50.0); MEAN CORPUSCULAR HEMOGLOBIN 24.9 pg (28.0-32.0); MEAN CORPUSCULAR HGB CONC 30.4 g/dL (31.0-37.0); MEAN PLATELET VOLUME 8.8 fl (7.4-10.4); NEUTROPHILS % 60.8 % (40.0-76.0); PLATELET 290 x1000/uL (130-400); RED BLOOD CELL COUNT 3.69 mill/uL (4.7-6.1); RED CELL DISTRIBUTION WIDTH 23.4 % (11.6-14.6); WHITE BLOOD COUNT 7.3 x1000/uL (4.5-11.0)
[2023-08-21] MEDS ORDERED: SODIUM CHLORIDE 0.9% 1000ML BAG (SEPSIS BOLUS) IV ONE (05:15)
[2023-08-21 05:19] LABS: DIFFERENTIAL COMMENT 1
[2023-08-21 05:20] LABS: ADD RBC MORPHOLOGY YES
[2023-08-21 05:40] LABS: D-DIMER 3.99 mg/L FEU (<0.50); INR 1.1; PROTHROMBIN TIME 11.9 sec (9.6-11.0)
[2023-08-21] MEDS ORDERED: MIDAZOLAM HCL 2 MG/2 ML VIAL IV ONE (05:45)
[2023-08-21 05:52] LABS: LACTIC ACID 2.3 mmol/L (0.4-2.0)
[2023-08-21 06:14] LABS: BG CARBOXYHEMOGLOBIN 0.8 % (0.5-1.5); BG DEOXYHEMOGLOBIN 2.5 % (0.0-5.0); BG FRACTION INSPIRED OXYGEN 50; BG HCO3 ACT 19.7 mmol/L (22.0-26.0); BG METHEMOGLOBIN 0.1 % (0.0-1.5); BG OXYGEN SATURATION 97.5 % (92.0-98.5); BG OXYHEMOGLOBIN 96.6 % (94.0-97.0); BG PCO2 30.7 mmHg (35.0-45.0); BG PH 7.425 (7.350-7.450); BG PO2 101.9 mmHg (75.0-100.0); BG SAMPLE SITE RIGHT RADIAL; BG TOTAL HEMOGLOBIN 9.5 g/dL (12.0-18.0); BG VENT MODE MASK - BIPAP
[2023-08-21 06:50] LABS: ANISOCYTOSIS 1+; PLATELET ESTIMATE NORMAL
[2023-08-21] MEDS ORDERED: CEFTRIAXONE 1GM PREMIX 50 ML IV NR (07:00)
[2023-08-21 07:11] LABS: ALANINE AMINOTRANSFERASE < 7 IU/L (10-49); ALBUMIN 3.2 g/dL (3.2-4.8); ASPARTATE AMINOTRANSFERASE 25 IU/L (<34); BILIRUBIN TOTAL 0.4 mg/dL (0.1-1.0); CALCIUM 8.8 mg/dL (8.7-10.4); CARBON DIOXIDE 22 mEq/L (21-32); CHLORIDE 108 mEq/L (98-107); CREATININE 0.8 mg/dL (0.6-1.3); GLUCOSE 83 mg/dL (70-105); POTASSIUM 3.8 mEq/L (3.5-5.1); PROTEIN TOTAL 7.7 g/dL (6.0-8.3); SODIUM 143 mEq/L (136-145); UREA NITROGEN BLOOD 17 mg/dL (9-23)
[2023-08-21 07:26] LABS: TROPONIN I HIGH SENSITIVITY 55 ng/L (3.0-53)
[2023-08-21] MEDS ORDERED: KETOROLAC 15MG/ML VIAL IV PRN (08:15)
[2023-08-21] MEDS ORDERED: ZOLPIDEM TARTRATE 5MG TABLET PO PRN (08:15)
[2023-08-21] MEDS ORDERED: IPRATROPIUM/ALBUTEROL 0.5-3(2.5)MG/3ML NEB NEB PRN (08:15)
[2023-08-21] MEDS ORDERED: ONDANSETRON HCL 4MG/2ML INJ IV PRN (08:15)
[2023-08-21] MEDS ORDERED: DOCUSATE SODIUM 100MG CAPSULE PO PRN (08:15)
[2023-08-21] MEDS ORDERED: ACETAMINOPHEN 325MG TABLET PO PRN ×2 (08:15)
[2023-08-21] MEDS ORDERED: MAGNESIUM/ALUMINUM HYDROXIDE/SIMETHICONE 30ML UDC PO PRN (08:15)
[2023-08-21] MEDS ORDERED: CLONIDINE 0.1MG TABLET PO PRN (08:15)
[2023-08-21] MEDS ORDERED: GUAIFENESIN 200MG/10ML SUGAR FREE UDC PO PRN (08:15)
[2023-08-21] MEDS ORDERED: NA PHOS,M-B/NA PHOS,DI-BA ENEMA 118ML PR PRN (08:15)
[2023-08-21 08:30] LABS: TROPONIN I HIGH SENSITIVITY 59 ng/L (3.0-53)
[2023-08-21] MEDS ORDERED: PIPERACILLIN/TAZO 3.375G/50ML 50 ML IV NR (08:30)
[2023-08-21] MEDS ORDERED: VANCOMYCIN 1.25GM PMX (XELLIA) 250 ML IV NR (09:00)
[2023-08-21 09:22] LABS: T4 FREE 1.48 ng/dL (0.89-1.76); THYROID STIMULATING HORMONE 2.87 uIU/mL (0.55-4.78)
[2023-08-21] MEDS: ASCORBIC ACID 500 MG TABLET PO SCH ×2 (09:37→21:12)
[2023-08-21] MEDS: ASPIRIN 325MG EC TABLET PO SCH (09:37)
[2023-08-21] MEDS: ENOXAPARIN 80MG/0.8ML SYR SUBCUT SCH ×2 (09:38→21:12)
[2023-08-21] MEDS: ZINC SULFATE 220 MG ( 50 ) CAPSULE PO SCH (09:41)
[2023-08-21] MEDS: FAMOTIDINE 20MG TABLET PO SCH ×2 (09:42→21:12)
[2023-08-21] MEDS: CARVEDILOL 3.125 MG TABLET PO SCH ×2 (14:15→21:00)
[2023-08-21] MEDS: AMIODARONE HCL 200 MG TABLET PO SCH ×2 (14:21→21:12)
[2023-08-21] MEDS ORDERED: PIPERACILLIN/TAZOBACTAM 3.375G in DEXT 5% WATER 50ML IV SCH (16:00)
[2023-08-21] MEDS: PIPERACILLIN/TAZOBACTAM 3.375G in DEXT 5% WATER 50ML IV SCH ×2 (17:17→22:30)
[2023-08-21 17:19] LABS: CREATINE KINASE MB FRACTION 1.3 ng/mL (0.5-3.6)
[2023-08-21 21:13] LABS: VITAMIN B12 SERUM 977 pg/mL (211-911)
[2023-08-21] MEDS: LORAZEPAM 4MG/ML INJ IV PRN (21:13)
[2023-08-21] MEDS: VANCOMYCIN 750MG PREMIX 150 ML IV SCH (22:07)
[2023-08-22] VITALS (14 sets, daily range): BP systolic 76–140; BP diastolic 65–97; PULSE 96–125; RESP 13–30; TEMP 97.1–97.8; O2SAT 96
[2023-08-22 00:35] LABS: CREATINE KINASE MB FRACTION 1.2 ng/mL (0.5-3.6)
[2023-08-22] MEDS: PIPERACILLIN/TAZOBACTAM 3.375G in DEXT 5% WATER 50ML IV SCH ×3 (06:05→21:13)
[2023-08-22] MEDS: IPRATROPIUM/ALBUTEROL 0.5-3(2.5)MG/3ML NEB HHN SCH ×2 (08:08→14:31)
[2023-08-22] MEDS: BUDESONIDE 0.5MG/2ML NEB HHN SCH (08:09)
[2023-08-22 08:35] LABS: BASOPHILS % 0.5 % (0.0-2.0); HEMATOCRIT. 26.8 % (42.0-52.0); HEMOGLOBIN. 8.2 g/dL (14.0-18.0); LYMPHOCYTES % 16.9 % (20.0-50.0); MEAN CORPUSCULAR HGB CONC 30.6 g/dL (31.0-37.0); MEAN CORPUSCULAR VOLUME 81.7 fL (80.0-94.0); MEAN PLATELET VOLUME 9.4 fl (7.4-10.4); NEUTROPHILS % 70.6 % (40.0-76.0); PLATELET 254 x1000/uL (130-400); RED BLOOD CELL COUNT 3.28 mill/uL (4.7-6.1); RED CELL DISTRIBUTION WIDTH 23.2 % (11.6-14.6); WHITE BLOOD COUNT 7.7 x1000/uL (4.5-11.0)
[2023-08-22 08:44] LABS: DIFFERENTIAL COMMENT 1
[2023-08-22] MEDS: FUROSEMIDE 20MG/2ML VIAL IVP SCH (08:44)
[2023-08-22] MEDS: ZINC SULFATE 220 MG ( 50 ) CAPSULE PO SCH (08:44)
[2023-08-22] MEDS: ASCORBIC ACID 500 MG TABLET PO SCH ×2 (08:45→21:12)
[2023-08-22] MEDS: AMIODARONE HCL 200 MG TABLET PO SCH ×2 (08:45→21:14)
[2023-08-22] MEDS: ENOXAPARIN 80MG/0.8ML SYR SUBCUT SCH ×2 (08:45→21:12)
[2023-08-22] MEDS: ASPIRIN 325MG EC TABLET PO SCH (08:45)
[2023-08-22] MEDS: FAMOTIDINE 20MG TABLET PO SCH ×2 (08:45→21:13)
[2023-08-22] MEDS: LORAZEPAM 4MG/ML INJ IV PRN (08:46)
[2023-08-22 08:51] LABS: ALANINE AMINOTRANSFERASE 35 IU/L (10-49); ALBUMIN 2.9 g/dL (3.2-4.8); ASPARTATE AMINOTRANSFERASE 53 IU/L (<34); BILIRUBIN TOTAL 0.3 mg/dL (0.1-1.0); CALCIUM 8.3 mg/dL (8.7-10.4); CARBON DIOXIDE 19 mEq/L (21-32); CHLORIDE 110 mEq/L (98-107); CREATININE 0.9 mg/dL (0.6-1.3); GLUCOSE 132 mg/dL (70-105); PHOSPHORUS 4.2 mg/dL (2.5-4.9); PROTEIN TOTAL 7.2 g/dL (6.0-8.3); SODIUM 143 mEq/L (136-145); UREA NITROGEN BLOOD 24 mg/dL (9-23)
[2023-08-22] MEDS: VANCOMYCIN 750MG PREMIX 150 ML IV SCH ×2 (09:08→21:20)
[2023-08-22 09:21] LABS: HEPATITIS B SURFACE ANTIGEN NEGATIVE (Negative); HEPATITIS C AB NON REACTIVE (Neg) (Negative)
[2023-08-22] MEDS ORDERED: IOHEXOL-350 100 ML BOTTLE ONE (13:50)
[2023-08-22] MEDS ORDERED: SODIUM CHLORIDE 0.9% 250 ML IV ONE (16:30)
[2023-08-22] MEDS ORDERED: SODIUM CHLORIDE 0.9% 500 ML IV ONE (16:30)
[2023-08-22] MEDS ORDERED: DIGOXIN 500MCG/2ML AMP IV NR (17:00)
[2023-08-22] MEDS ORDERED: DIGOXIN 500MCG/2ML AMP IV SCH (19:00)
[2023-08-22] MEDS: CARVEDILOL 3.125 MG TABLET PO SCH (21:00)
[2023-08-23] VITALS (16 sets, daily range): BP systolic 92–111; BP diastolic 71–93; PULSE 94–105; RESP 15–33; TEMP 97.2–98; O2SAT 96–97
[2023-08-23] MEDS: LORAZEPAM 4MG/ML INJ IV PRN ×2 (04:06→20:40)
[2023-08-23] MEDS: PIPERACILLIN/TAZOBACTAM 3.375G in DEXT 5% WATER 50ML IV SCH ×3 (05:19→21:08)
[2023-08-23 07:26] LABS: HEMOGLOBIN. 7.7 g/dL (14.0-18.0); MEAN CORPUSCULAR HEMOGLOBIN 25.4 pg (28.0-32.0); MEAN CORPUSCULAR HGB CONC 30.6 g/dL (31.0-37.0); MEAN PLATELET VOLUME 9.3 fl (7.4-10.4); PLATELET 233 x1000/uL (130-400); RED BLOOD CELL COUNT 3.01 mill/uL (4.7-6.1); RED CELL DISTRIBUTION WIDTH 24.1 % (11.6-14.6); WHITE BLOOD COUNT 6.9 x1000/uL (4.5-11.0)
[2023-08-23 07:39] LABS: DIFFERENTIAL COMMENT 1
[2023-08-23] MEDS: IPRATROPIUM/ALBUTEROL 0.5-3(2.5)MG/3ML NEB HHN SCH ×3 (07:55→20:54)
[2023-08-23] MEDS: BUDESONIDE 0.5MG/2ML NEB HHN SCH ×2 (07:55→20:54)
[2023-08-23 08:06] LABS: CALCIUM 8.4 mg/dL (8.7-10.4); CARBON DIOXIDE 22 mEq/L (21-32); CHLORIDE 112 mEq/L (98-107); GLUCOSE 79 mg/dL (70-105); SODIUM 144 mEq/L (136-145); UREA NITROGEN BLOOD 27 mg/dL (9-23)
[2023-08-23] MEDS: CARVEDILOL 3.125 MG TABLET PO SCH ×2 (09:00→20:37)
[2023-08-23] MEDS: AMIODARONE HCL 200 MG TABLET PO SCH ×2 (09:20→20:37)
[2023-08-23] MEDS: FUROSEMIDE 20MG/2ML VIAL IVP SCH (09:20)
[2023-08-23] MEDS: ASPIRIN 325MG EC TABLET PO SCH (09:20)
[2023-08-23] MEDS: ASCORBIC ACID 500 MG TABLET PO SCH ×2 (09:21→20:38)
[2023-08-23] MEDS: ZINC SULFATE 220 MG ( 50 ) CAPSULE PO SCH (09:21)
[2023-08-23] MEDS: FAMOTIDINE 20MG TABLET PO SCH ×2 (09:21→20:37)
[2023-08-23] MEDS: VANCOMYCIN 750MG PREMIX 150 ML IV SCH ×2 (09:21→20:36)
[2023-08-23] MEDS: ENOXAPARIN 80MG/0.8ML SYR SUBCUT SCH ×2 (09:35→20:44)
[2023-08-23 14:15] LABS: ANISOCYTOSIS 2+; PLATELET ESTIMATE NORMAL
[2023-08-23] MEDS ORDERED: KETOROLAC 15MG/ML VIAL IV PRN (19:15)
[2023-08-24] VITALS (16 sets, daily range): BP systolic 9–109; BP diastolic 58–86; PULSE 88–106; RESP 16–30; TEMP 97–98.1; O2SAT 96–99
[2023-08-24] MEDS: IPRATROPIUM/ALBUTEROL 0.5-3(2.5)MG/3ML NEB HHN SCH ×4 (01:24→21:43)
[2023-08-24] MEDS: PIPERACILLIN/TAZOBACTAM 3.375G in DEXT 5% WATER 50ML IV SCH ×3 (05:04→20:57)
[2023-08-24] MEDS: ENOXAPARIN 80MG/0.8ML SYR SUBCUT SCH ×2 (09:03→20:57)
[2023-08-24] MEDS: FUROSEMIDE 20MG/2ML VIAL IVP SCH (09:03)
[2023-08-24] MEDS: ASPIRIN 325MG EC TABLET PO SCH (09:03)
[2023-08-24] MEDS: ASCORBIC ACID 500 MG TABLET PO SCH ×2 (09:03→20:56)
[2023-08-24] MEDS: ZINC SULFATE 220 MG ( 50 ) CAPSULE PO SCH (09:04)
[2023-08-24] MEDS: FAMOTIDINE 20MG TABLET PO SCH ×2 (09:04→20:56)
[2023-08-24] MEDS: AMIODARONE HCL 200 MG TABLET PO SCH ×2 (09:04→20:56)
[2023-08-24] MEDS: CARVEDILOL 3.125 MG TABLET PO SCH ×2 (09:05→21:00)
[2023-08-24] MEDS: BUDESONIDE 0.5MG/2ML NEB HHN SCH ×2 (09:15→21:43)
[2023-08-24] MEDS: VANCOMYCIN 750MG PREMIX 150 ML IV SCH ×2 (09:21→20:49)
[2023-08-24] MEDS: LORAZEPAM 4MG/ML INJ IV PRN (15:58)
[2023-08-25] VITALS (16 sets, daily range): BP systolic 93–123; BP diastolic 58–94; PULSE 91–108; RESP 15–27; TEMP 97.5–97.9; O2SAT 96–98
[2023-08-25] MEDS: LORAZEPAM 4MG/ML INJ IV PRN (02:13)
[2023-08-25] MEDS: IPRATROPIUM/ALBUTEROL 0.5-3(2.5)MG/3ML NEB HHN SCH ×4 (03:34→20:07)
[2023-08-25] MEDS: PIPERACILLIN/TAZOBACTAM 3.375G in DEXT 5% WATER 50ML IV SCH ×3 (05:49→21:30)
[2023-08-25] MEDS: BUDESONIDE 0.5MG/2ML NEB HHN SCH ×2 (08:40→20:07)
[2023-08-25] MEDS: CARVEDILOL 3.125 MG TABLET PO SCH ×2 (09:00→21:00)
[2023-08-25] MEDS: LISINOPRIL 2.5MG TABLET PO SCH (09:00)
[2023-08-25] MEDS: ASCORBIC ACID 500 MG TABLET PO SCH ×2 (09:32→21:29)
[2023-08-25] MEDS: AMIODARONE HCL 200 MG TABLET PO SCH (09:32)
[2023-08-25] MEDS: ENOXAPARIN 80MG/0.8ML SYR SUBCUT SCH (09:32)
[2023-08-25] MEDS: FAMOTIDINE 20MG TABLET PO SCH ×2 (09:32→21:28)
[2023-08-25] MEDS: FUROSEMIDE 20MG/2ML VIAL IVP SCH (09:32)
[2023-08-25] MEDS: ASPIRIN 325MG EC TABLET PO SCH (09:32)
[2023-08-25] MEDS: ZINC SULFATE 220 MG ( 50 ) CAPSULE PO SCH (11:44)
[2023-08-25] MEDS: VANCOMYCIN 750MG PREMIX 150 ML IV SCH ×2 (11:44→21:28)
[2023-08-25] MEDS ORDERED: ENOXAPARIN 60MG/0.6ML SYR SUBCUT SCH (15:12)
[2023-08-25] MEDS: ENOXAPARIN 60MG/0.6ML SYR SUBCUT SCH (21:30)
[2023-08-26] VITALS (14 sets, daily range): BP systolic 80–139; BP diastolic 68–105; PULSE 100–123; RESP 15–47; TEMP 97.2–97.9; O2SAT 98
[2023-08-26] MEDS: IPRATROPIUM/ALBUTEROL 0.5-3(2.5)MG/3ML NEB HHN SCH ×2 (01:52→09:00)
[2023-08-26] MEDS: PIPERACILLIN/TAZOBACTAM 3.375G in DEXT 5% WATER 50ML IV SCH ×3 (05:12→20:24)
[2023-08-26] MEDS: BUDESONIDE 0.5MG/2ML NEB HHN SCH (08:59)
[2023-08-26] MEDS: LISINOPRIL 2.5MG TABLET PO SCH (09:00)
[2023-08-26] MEDS: CARVEDILOL 3.125 MG TABLET PO SCH (09:00)
[2023-08-26] MEDS: VANCOMYCIN 750MG PREMIX 150 ML IV SCH ×2 (09:33→20:08)
[2023-08-26] MEDS: ENOXAPARIN 60MG/0.6ML SYR SUBCUT SCH ×2 (09:34→20:24)
[2023-08-26] MEDS: ASCORBIC ACID 500 MG TABLET PO SCH ×2 (09:35→20:22)
[2023-08-26] MEDS: ZINC SULFATE 220 MG ( 50 ) CAPSULE PO SCH (09:35)
[2023-08-26] MEDS: AMIODARONE HCL 200 MG TABLET PO SCH (09:35)
[2023-08-26] MEDS: FUROSEMIDE 20MG/2ML VIAL IVP SCH (09:36)
[2023-08-26] MEDS: ASPIRIN 325MG EC TABLET PO SCH (09:36)
[2023-08-26] MEDS: FAMOTIDINE 20MG TABLET PO SCH ×2 (09:36→20:23)
[2023-08-26 10:37] LABS: HEMATOCRIT 25.5 % (42.0-52.0); HEMOGLOBIN 7.8 g/dL (14.0-18.0); MEAN CORPUSCULAR HEMOGLOBIN 25.5 pg (28.0-32.0); MEAN CORPUSCULAR HGB CONC 30.8 g/dL (31.0-37.0); MEAN CORPUSCULAR VOLUME 82.8 fL (80.0-94.0); PLATELET 201 x1000/uL (130-400); RED BLOOD CELL COUNT 3.08 mill/uL (4.7-6.1); WHITE BLOOD COUNT 6.1 x1000/uL (4.5-11.0)
[2023-08-26 10:49] LABS: ALANINE AMINOTRANSFERASE 63 IU/L (10-49); ALBUMIN 2.8 g/dL (3.2-4.8); ASPARTATE AMINOTRANSFERASE 52 IU/L (<34); BILIRUBIN TOTAL 0.4 mg/dL (0.1-1.0); CARBON DIOXIDE 27 mEq/L (21-32); CHLORIDE 109 mEq/L (98-107); CREATININE 0.8 mg/dL (0.6-1.3); GLUCOSE 105 mg/dL (70-105); POTASSIUM 3.8 mEq/L (3.5-5.1); PROTEIN TOTAL 6.7 g/dL (6.0-8.3); SODIUM 141 mEq/L (136-145); UREA NITROGEN BLOOD 16 mg/dL (9-23)
[2023-08-26] MEDS: METOPROLOL SUCCINATE 25MG ER TABLET PO SCH (18:25)
[2023-08-26] MEDS: LORAZEPAM 4MG/ML INJ IV PRN (20:29)
[2023-08-26] MEDS ORDERED: ZOLPIDEM TARTRATE 5MG TABLET PO PRN (20:45)
[2023-08-27] VITALS (11 sets, daily range): BP systolic 88–152; BP diastolic 66–111; PULSE 95–120; RESP 16–38; TEMP 97.7–98.5
[2023-08-27] MEDS: FUROSEMIDE 20MG/2ML VIAL IVP SCH (09:36)
[2023-08-27] MEDS: ZINC SULFATE 220 MG ( 50 ) CAPSULE PO SCH (09:37)
[2023-08-27] MEDS: AMIODARONE HCL 200 MG TABLET PO SCH (09:37)
[2023-08-27] MEDS: ASPIRIN 325MG EC TABLET PO SCH (09:37)
[2023-08-27] MEDS: LISINOPRIL 2.5MG TABLET PO SCH (09:37)
[2023-08-27] MEDS: FAMOTIDINE 20MG TABLET PO SCH ×2 (09:37→20:20)
[2023-08-27] MEDS: ASCORBIC ACID 500 MG TABLET PO SCH ×2 (09:38→20:19)
[2023-08-27] MEDS: METOPROLOL SUCCINATE 25MG ER TABLET PO SCH (09:38)
[2023-08-27] MEDS: ENOXAPARIN 60MG/0.6ML SYR SUBCUT SCH ×2 (09:39→20:19)
[2023-08-27] MEDS ORDERED: IPRATROPIUM/ALBUTEROL 0.5-3(2.5)MG/3ML NEB HHN PRN (13:15)
[2023-08-28] VITALS: BP 100/72; PULSE 103; RESP 25; TEMP 97.8
[2023-08-28 04:00] VITALS: BP 101/82; PULSE 101; RESP 23; TEMP 97.8
[2023-08-28 08:00] VITALS: BP 105/90; PULSE 102; RESP 23; TEMP 98.1
[2023-08-28] MEDS: FUROSEMIDE 20MG/2ML VIAL IVP SCH (08:45)
[2023-08-28] MEDS: AMIODARONE HCL 200 MG TABLET PO SCH (08:47)
[2023-08-28] MEDS: ASPIRIN 325MG EC TABLET PO SCH (08:47)
[2023-08-28] MEDS: FAMOTIDINE 20MG TABLET PO SCH ×2 (08:48→21:54)
[2023-08-28] MEDS: ASCORBIC ACID 500 MG TABLET PO SCH ×2 (08:49→21:54)
[2023-08-28] MEDS: ENOXAPARIN 60MG/0.6ML SYR SUBCUT SCH ×2 (08:51→21:53)
[2023-08-28] MEDS: ZINC SULFATE 220 MG ( 50 ) CAPSULE PO SCH (08:56)
[2023-08-28] MEDS: METOPROLOL SUCCINATE 25MG ER TABLET PO SCH (09:00)
[2023-08-28] MEDS: LISINOPRIL 2.5MG TABLET PO SCH (09:03)
[2023-08-28 12:00] VITALS: BP 106/90; PULSE 102; RESP 20; TEMP 98.2
[2023-08-28 16:00] VITALS: BP 100/90; PULSE 102; RESP 20; TEMP 98.1
[2023-08-28 20:00] VITALS: BP 107/84; PULSE 103; RESP 20; TEMP 97.4
[2023-08-29] VITALS (8 sets, daily range): BP systolic 94–118; BP diastolic 75–96; PULSE 94–107; RESP 15–21; TEMP 96.7–98.2
[2023-08-29] MEDS: LISINOPRIL 2.5MG TABLET PO SCH (09:00)
[2023-08-29] MEDS: ZINC SULFATE 220 MG ( 50 ) CAPSULE PO SCH (09:00)
[2023-08-29] MEDS: METOPROLOL SUCCINATE 25MG ER TABLET PO SCH (09:00)
[2023-08-29] MEDS: ASPIRIN 325MG EC TABLET PO SCH (09:00)
[2023-08-29] MEDS: FUROSEMIDE 20MG/2ML VIAL IVP SCH (09:12)
[2023-08-29] MEDS: ASCORBIC ACID 500 MG TABLET PO SCH ×2 (09:13→21:39)
[2023-08-29] MEDS: AMIODARONE HCL 200 MG TABLET PO SCH (09:13)
[2023-08-29] MEDS: ENOXAPARIN 60MG/0.6ML SYR SUBCUT SCH ×2 (09:14→21:42)
[2023-08-29] MEDS: FAMOTIDINE 20MG TABLET PO SCH ×2 (09:15→21:39)
[2023-08-30] VITALS: BP 107/89; PULSE 98; RESP 19; TEMP 98.4
[2023-08-30 08:00] VITALS: BP 100/74; PULSE 95; RESP 19; TEMP 97.7
[2023-08-30] MEDS: ASPIRIN 325MG EC TABLET PO SCH (09:42)
[2023-08-30] MEDS: ZINC SULFATE 220 MG ( 50 ) CAPSULE PO SCH (09:42)
[2023-08-30] MEDS: ENOXAPARIN 60MG/0.6ML SYR SUBCUT SCH ×2 (09:42→22:02)
[2023-08-30] MEDS: FUROSEMIDE 20MG/2ML VIAL IVP SCH (09:43)
[2023-08-30] MEDS: METOPROLOL SUCCINATE 25MG ER TABLET PO SCH (09:44)
[2023-08-30] MEDS: FAMOTIDINE 20MG TABLET PO SCH ×2 (09:46→22:01)
[2023-08-30] MEDS: LISINOPRIL 2.5MG TABLET PO SCH (09:46)
[2023-08-30] MEDS: ASCORBIC ACID 500 MG TABLET PO SCH ×2 (09:47→22:01)
[2023-08-30] MEDS: AMIODARONE HCL 200 MG TABLET PO SCH (09:49)
[2023-08-30 12:00] VITALS: BP 90/66; PULSE 98; RESP 18; TEMP 97.5
[2023-08-30 16:00] VITALS: BP 94/70; PULSE 100; RESP 18; TEMP 98.8
[2023-08-30 20:00] VITALS: BP 105/64; PULSE 106; RESP 18; TEMP 97.1
[2023-08-31] VITALS: BP 104/78; PULSE 103; RESP 20; TEMP 97.5
[2023-08-31 04:00] VITALS: BP 95/68; PULSE 92; RESP 19; TEMP 97.3
[2023-08-31 08:00] VITALS: BP 95/72; PULSE 112; RESP 20; TEMP 97
[2023-08-31] MEDS: METOPROLOL SUCCINATE 25MG ER TABLET PO SCH (09:00)
[2023-08-31] MEDS: FUROSEMIDE 20MG/2ML VIAL IVP SCH (10:12)
[2023-08-31] MEDS: AMIODARONE HCL 200 MG TABLET PO SCH (10:12)
[2023-08-31] MEDS: ENOXAPARIN 60MG/0.6ML SYR SUBCUT SCH ×2 (10:12→21:21)
[2023-08-31] MEDS: ZINC SULFATE 220 MG ( 50 ) CAPSULE PO SCH (10:13)
[2023-08-31] MEDS: ASPIRIN 325MG EC TABLET PO SCH (10:13)
[2023-08-31] MEDS: FAMOTIDINE 20MG TABLET PO SCH ×2 (10:14→21:20)
[2023-08-31] MEDS: LISINOPRIL 2.5MG TABLET PO SCH (10:14)
[2023-08-31] MEDS: ASCORBIC ACID 500 MG TABLET PO SCH ×2 (10:15→21:20)
[2023-08-31 20:00] VITALS: BP 88/68; PULSE 97; RESP 17; TEMP 98.6
[2023-08-31] MEDS: ZOLPIDEM TARTRATE 5MG TABLET PO PRN (21:21)
[2023-09-01] VITALS: BP 92/68; PULSE 101; RESP 19; TEMP 97.5
[2023-09-01 04:00] VITALS: BP 109/78; PULSE 98; RESP 18; TEMP 97.5
[2023-09-01 08:00] VITALS: BP 103/79; PULSE 102; RESP 20; TEMP 98.3
[2023-09-01] MEDS: LISINOPRIL 2.5MG TABLET PO SCH (09:00)
[2023-09-01] MEDS: FUROSEMIDE 20MG/2ML VIAL IVP SCH (10:01)
[2023-09-01] MEDS: AMIODARONE HCL 200 MG TABLET PO SCH (10:02)
[2023-09-01] MEDS: ASCORBIC ACID 500 MG TABLET PO SCH ×2 (10:02→20:22)
[2023-09-01] MEDS: ZINC SULFATE 220 MG ( 50 ) CAPSULE PO SCH (10:02)
[2023-09-01] MEDS: ASPIRIN 325MG EC TABLET PO SCH (10:02)
[2023-09-01] MEDS: FAMOTIDINE 20MG TABLET PO SCH ×2 (10:02→20:21)
[2023-09-01] MEDS: METOPROLOL SUCCINATE 25MG ER TABLET PO SCH (10:03)
[2023-09-01] MEDS: ENOXAPARIN 60MG/0.6ML SYR SUBCUT SCH ×2 (10:04→20:21)
[2023-09-01] MEDS: LORAZEPAM 0.5MG TABLET PO PRN (10:40)
[2023-09-01 12:00] VITALS: BP 90/71; PULSE 64; RESP 16; TEMP 97.4
[2023-09-01 16:00] VITALS: BP 95/70; PULSE 103; RESP 17; TEMP 97.1
[2023-09-01] MEDS: IPRATROPIUM/ALBUTEROL 0.5-3(2.5)MG/3ML NEB HHN SCH (18:00)
[2023-09-01] MEDS: BUDESONIDE 0.5MG/2ML NEB HHN SCH (18:00)
[2023-09-01 20:00] VITALS: BP 125/95; PULSE 109; RESP 20; TEMP 97.9
[2023-09-01] MEDS: ZOLPIDEM TARTRATE 5MG TABLET PO PRN (20:21)
[2023-09-02] VITALS (7 sets, daily range): BP systolic 92–116; BP diastolic 70–90; PULSE 64–121; RESP 16–22; TEMP 95–98.8; O2SAT 98
[2023-09-02] MEDS: LISINOPRIL 2.5MG TABLET PO SCH (10:54)
[2023-09-02] MEDS: FAMOTIDINE 20MG TABLET PO SCH ×2 (10:55→20:35)
[2023-09-02] MEDS: ASCORBIC ACID 500 MG TABLET PO SCH ×2 (10:55→20:35)
[2023-09-02] MEDS: ASPIRIN 325MG EC TABLET PO SCH (10:58)
[2023-09-02] MEDS: ENOXAPARIN 60MG/0.6ML SYR SUBCUT SCH ×2 (10:58→20:35)
[2023-09-02] MEDS: FUROSEMIDE 20MG/2ML VIAL IVP SCH (10:59)
[2023-09-02] MEDS: AMIODARONE HCL 200 MG TABLET PO SCH (11:23)
[2023-09-02] MEDS: ZINC SULFATE 220 MG ( 50 ) CAPSULE PO SCH (11:23)
[2023-09-02] MEDS: IPRATROPIUM/ALBUTEROL 0.5-3(2.5)MG/3ML NEB HHN SCH (18:00)
[2023-09-02] MEDS: ZOLPIDEM TARTRATE 5MG TABLET PO PRN (20:35)
[2023-09-03] VITALS: BP 100/66; PULSE 65; RESP 18; TEMP 97.1
[2023-09-03] MEDS: LORAZEPAM 0.5MG TABLET PO PRN ×4 (00:23→20:53)
[2023-09-03] MEDS: IPRATROPIUM/ALBUTEROL 0.5-3(2.5)MG/3ML NEB HHN SCH (01:01)
[2023-09-03 01:07] VITALS: PULSE 100; RESP 20; O2SAT 91
[2023-09-03 08:00] VITALS: BP 97/67; PULSE 97; RESP 17; TEMP 96.7
[2023-09-03] MEDS: LISINOPRIL 2.5MG TABLET PO SCH (08:23)
[2023-09-03] MEDS: ZINC SULFATE 220 MG ( 50 ) CAPSULE PO SCH (08:23)
[2023-09-03] MEDS: ASPIRIN 325MG EC TABLET PO SCH (08:23)
[2023-09-03] MEDS: AMIODARONE HCL 200 MG TABLET PO SCH (08:23)
[2023-09-03] MEDS: FAMOTIDINE 20MG TABLET PO SCH ×2 (08:23→20:29)
[2023-09-03] MEDS: METOPROLOL SUCCINATE 25MG ER TABLET PO SCH (08:24)
[2023-09-03] MEDS: FUROSEMIDE 20MG/2ML VIAL IVP SCH (08:24)
[2023-09-03] MEDS: ASCORBIC ACID 500 MG TABLET PO SCH ×2 (08:24→20:29)
[2023-09-03] MEDS: ENOXAPARIN 60MG/0.6ML SYR SUBCUT SCH ×2 (08:26→20:30)
[2023-09-03 12:00] VITALS: BP 98/67; PULSE 92; RESP 17; TEMP 96.1
[2023-09-03 16:00] VITALS: BP 93/66; PULSE 99; RESP 18; TEMP 97.9
[2023-09-03 20:00] VITALS: BP 106/81; PULSE 96; RESP 15; TEMP 97
[2023-09-04] VITALS (8 sets, daily range): BP systolic 90–108; BP diastolic 59–77; PULSE 59–125; RESP 15–20; TEMP 96.1–98.8; O2SAT 95–97
[2023-09-04] MEDS: IPRATROPIUM/ALBUTEROL 0.5-3(2.5)MG/3ML NEB HHN SCH ×3 (00:01→20:00)
[2023-09-04] MEDS: BUDESONIDE 0.5MG/2ML NEB HHN SCH ×3 (08:17→19:58)
[2023-09-04] MEDS: LISINOPRIL 2.5MG TABLET PO SCH (09:00)
[2023-09-04] MEDS: METOPROLOL SUCCINATE 25MG ER TABLET PO SCH (09:14)
[2023-09-04] MEDS: ASPIRIN 325MG EC TABLET PO SCH (09:15)
[2023-09-04] MEDS: AMIODARONE HCL 200 MG TABLET PO SCH ×2 (09:15→17:32)
[2023-09-04] MEDS: FAMOTIDINE 20MG TABLET PO SCH ×2 (09:15→20:25)
[2023-09-04] MEDS: FUROSEMIDE 20MG/2ML VIAL IVP SCH (09:15)
[2023-09-04] MEDS: ASCORBIC ACID 500 MG TABLET PO SCH ×2 (09:15→20:25)
[2023-09-04] MEDS: ENOXAPARIN 60MG/0.6ML SYR SUBCUT SCH ×2 (09:16→20:25)
[2023-09-04] MEDS: ZINC SULFATE 220 MG ( 50 ) CAPSULE PO SCH (09:16)
[2023-09-04] MEDS ORDERED: AMIODARONE HCL 200 MG TABLET PO NR (09:30)
[2023-09-04] MEDS ORDERED: DIGOXIN 500MCG/2ML AMP IV NR (12:00)
[2023-09-04] MEDS ORDERED: METOPROLOL SUCCINATE 25MG ER TABLET PO NR (14:00)
[2023-09-04] MEDS: ZOLPIDEM TARTRATE 5MG TABLET PO PRN (22:08)
[2023-09-04] MEDS: LORAZEPAM 0.5MG TABLET PO PRN (23:55)
[2023-09-05] VITALS (10 sets, daily range): BP systolic 90–113; BP diastolic 65–83; PULSE 60–116; RESP 15–22; TEMP 97.3–99.5; O2SAT 98–99
[2023-09-05] MEDS: AMIODARONE HCL 200 MG TABLET PO SCH ×2 (06:00→17:52)
[2023-09-05] MEDS: FAMOTIDINE 20MG TABLET PO SCH ×2 (08:18→21:00)
[2023-09-05] MEDS: ASCORBIC ACID 500 MG TABLET PO SCH ×2 (08:18→21:00)
[2023-09-05] MEDS: ASPIRIN 325MG EC TABLET PO SCH (08:19)
[2023-09-05] MEDS: FUROSEMIDE 20MG/2ML VIAL IVP SCH (08:19)
[2023-09-05] MEDS: ZINC SULFATE 220 MG ( 50 ) CAPSULE PO SCH (08:19)
[2023-09-05] MEDS: LISINOPRIL 2.5MG TABLET PO SCH (08:19)
[2023-09-05] MEDS: METOPROLOL SUCCINATE 25MG ER TABLET PO SCH (08:21)
[2023-09-05] MEDS: ENOXAPARIN 60MG/0.6ML SYR SUBCUT SCH ×2 (08:22→21:00)
[2023-09-05] MEDS: BUDESONIDE 0.5MG/2ML NEB HHN SCH ×2 (10:29→22:01)
[2023-09-05] MEDS: IPRATROPIUM/ALBUTEROL 0.5-3(2.5)MG/3ML NEB HHN SCH ×4 (10:29→22:01)
[2023-09-05] MEDS: LORAZEPAM 0.5MG TABLET PO PRN (19:57)
[2023-09-06] VITALS (9 sets, daily range): BP systolic 90–130; BP diastolic 60–75; PULSE 76–98; RESP 15–22; TEMP 97.6–98.1; O2SAT 91–97
[2023-09-06] MEDS: IPRATROPIUM/ALBUTEROL 0.5-3(2.5)MG/3ML NEB HHN SCH ×4 (03:00→21:06)
[2023-09-06] MEDS: AMIODARONE HCL 200 MG TABLET PO SCH ×2 (05:37→17:57)
[2023-09-06] MEDS: ASPIRIN 325MG EC TABLET PO SCH (08:02)
[2023-09-06] MEDS: FAMOTIDINE 20MG TABLET PO SCH ×2 (08:02→20:59)
[2023-09-06] MEDS: ASCORBIC ACID 500 MG TABLET PO SCH ×2 (08:02→20:59)
[2023-09-06] MEDS: METOPROLOL SUCCINATE 25MG ER TABLET PO SCH (08:02)
[2023-09-06] MEDS: ZINC SULFATE 220 MG ( 50 ) CAPSULE PO SCH (08:02)
[2023-09-06] MEDS: FUROSEMIDE 20MG/2ML VIAL IVP SCH (08:02)
[2023-09-06] MEDS: ENOXAPARIN 60MG/0.6ML SYR SUBCUT SCH ×2 (08:02→20:59)
[2023-09-06] MEDS: LISINOPRIL 2.5MG TABLET PO SCH (09:00)
[2023-09-06] MEDS: BUDESONIDE 0.5MG/2ML NEB HHN SCH ×2 (14:00→21:06)
[2023-09-06] MEDS ORDERED: ZOLPIDEM TARTRATE 5MG TABLET PO NR (22:45)
[2023-09-07] VITALS (8 sets, daily range): BP systolic 93–134; BP diastolic 68–114; PULSE 76–98; RESP 16–22; TEMP 96.4–97.8; O2SAT 94–95
[2023-09-07] MEDS: AMIODARONE HCL 200 MG TABLET PO SCH ×2 (06:00→18:16)
[2023-09-07 07:14] LABS: BASOPHILS % 0.7 % (0.0-2.0); EOSINOPHILS % 1.5 % (0.0-5.0); HEMATOCRIT. 32.8 % (42.0-52.0); HEMOGLOBIN. 9.9 g/dL (14.0-18.0); LYMPHOCYTES % 15.3 % (20.0-50.0); MEAN CORPUSCULAR HEMOGLOBIN 26.8 pg (28.0-32.0); MEAN CORPUSCULAR VOLUME 89.2 fL (80.0-94.0); MEAN PLATELET VOLUME 9.9 fl (7.4-10.4); NEUTROPHILS % 74.5 % (40.0-76.0); PLATELET 164 x1000/uL (130-400); RED BLOOD CELL COUNT 3.68 mill/uL (4.7-6.1); RED CELL DISTRIBUTION WIDTH 29.3 % (11.6-14.6); WHITE BLOOD COUNT 8.1 x1000/uL (4.5-11.0)
[2023-09-07 07:24] LABS: DIFFERENTIAL COMMENT 1
[2023-09-07 07:25] LABS: ADD RBC MORPHOLOGY YES
[2023-09-07] MEDS: IPRATROPIUM/ALBUTEROL 0.5-3(2.5)MG/3ML NEB HHN SCH ×2 (08:00→14:00)
[2023-09-07] MEDS: BUDESONIDE 0.5MG/2ML NEB HHN SCH (08:00)
[2023-09-07 08:10] LABS: ALANINE AMINOTRANSFERASE 956 IU/L (10-49); ALBUMIN 3.2 g/dL (3.2-4.8); ASPARTATE AMINOTRANSFERASE 1524 IU/L (<34); BILIRUBIN TOTAL 1.3 mg/dL (0.1-1.0); CALCIUM 8.7 mg/dL (8.7-10.4); CARBON DIOXIDE 23 mEq/L (21-32); CHLORIDE 101 mEq/L (98-107); GLUCOSE 65 mg/dL (70-105); POTASSIUM 5.6 mEq/L (3.5-5.1); PROTEIN TOTAL 8.1 g/dL (6.0-8.3); SODIUM 136 mEq/L (136-145); UREA NITROGEN BLOOD 41 mg/dL (9-23)
[2023-09-07 08:20] LABS: CREATININE 1.3 mg/dL (0.6-1.3)
[2023-09-07] MEDS: FUROSEMIDE 20MG/2ML VIAL IVP SCH (09:00)
[2023-09-07] MEDS: LISINOPRIL 2.5MG TABLET PO SCH (09:00)
[2023-09-07] MEDS: ASCORBIC ACID 500 MG TABLET PO SCH ×2 (09:51→20:49)
[2023-09-07] MEDS: ASPIRIN 325MG EC TABLET PO SCH (09:51)
[2023-09-07] MEDS: ZINC SULFATE 220 MG ( 50 ) CAPSULE PO SCH (09:51)
[2023-09-07] MEDS: FAMOTIDINE 20MG TABLET PO SCH (09:53)
[2023-09-07] MEDS: METOPROLOL SUCCINATE 25MG ER TABLET PO SCH (09:55)
[2023-09-07] MEDS: ENOXAPARIN 60MG/0.6ML SYR SUBCUT SCH ×2 (09:56→20:49)
[2023-09-07 11:25] LABS: POTASSIUM 4.8 mEq/L (3.5-5.1)
[2023-09-07 14:16] LABS: ANISOCYTOSIS 3+; PLATELET ESTIMATE NORMAL
[2023-09-07 15:37] LABS: BG BASE EXCESS -3.9 mmol/L (-2.0-2.0); BG CARBOXYHEMOGLOBIN 0.9 % (0.5-1.5); BG DEOXYHEMOGLOBIN 6.4 % (0.0-5.0); BG FRACTION INSPIRED OXYGEN 30; BG HCO3 ACT 19.9 mmol/L (22.0-26.0); BG METHEMOGLOBIN 0.3 % (0.0-1.5); BG OXYGEN SATURATION 93.5 % (92.0-98.5); BG OXYHEMOGLOBIN 92.4 % (94.0-97.0); BG PCO2 31.7 mmHg (35.0-45.0); BG PH 7.416 (7.350-7.450); BG PO2 73.8 mmHg (75.0-100.0); BG SAMPLE SITE RIGHT FEMORAL; BG TOTAL HEMOGLOBIN 10.5 g/dL (12.0-18.0); BG VENT MODE NASAL CANNULA
[2023-09-08] VITALS: BP 102/77; PULSE 81; RESP 18; TEMP 98.4
[2023-09-08] MEDS: NITROGLYCERIN 0.4MG TABLET SL SL PRN (02:40)
[2023-09-08 04:00] VITALS: BP 118/60; PULSE 83; RESP 18; TEMP 98.8
[2023-09-08] MEDS: AMIODARONE HCL 200 MG TABLET PO SCH ×2 (06:29→18:00)
[2023-09-08 08:00] VITALS: BP 110/81; PULSE 78; RESP 18; TEMP 96.7
[2023-09-08] MEDS: ASCORBIC ACID 500 MG TABLET PO SCH ×2 (08:27→21:00)
[2023-09-08] MEDS: ZINC SULFATE 220 MG ( 50 ) CAPSULE PO SCH (08:27)
[2023-09-08] MEDS: FAMOTIDINE 20MG TABLET PO SCH (08:27)
[2023-09-08] MEDS: FUROSEMIDE 20MG/2ML VIAL IVP SCH (08:28)
[2023-09-08] MEDS: ASPIRIN 325MG EC TABLET PO SCH (08:29)
[2023-09-08] MEDS: ENOXAPARIN 60MG/0.6ML SYR SUBCUT SCH ×2 (08:29→21:00)
[2023-09-08] MEDS: LISINOPRIL 2.5MG TABLET PO SCH (08:30)
[2023-09-08] MEDS: METOPROLOL SUCCINATE 25MG ER TABLET PO SCH (09:03)
[2023-09-08 12:00] VITALS: BP 127/90; PULSE 82; RESP 18; TEMP 96.3
[2023-09-08 16:00] VITALS: BP 109/89; PULSE 82; RESP 17; TEMP 96.7
[2023-09-08 20:00] VITALS: BP 95/68; PULSE 78; RESP 18; TEMP 98.4
[2023-09-09] VITALS: BP 101/73; PULSE 76; RESP 18; TEMP 97.8
[2023-09-09 04:00] VITALS: BP 111/81; PULSE 75; RESP 19; TEMP 98
[2023-09-09] MEDS: AMIODARONE HCL 200 MG TABLET PO SCH (06:00)
[2023-09-09 08:00] VITALS: BP 90/64; PULSE 75; RESP 21; TEMP 98.2
[2023-09-09] MEDS: ENOXAPARIN 60MG/0.6ML SYR SUBCUT SCH ×2 (08:33→20:52)
[2023-09-09] MEDS: ZINC SULFATE 220 MG ( 50 ) CAPSULE PO SCH (08:33)
[2023-09-09] MEDS: ASPIRIN 325MG EC TABLET PO SCH (08:34)
[2023-09-09] MEDS: FAMOTIDINE 20MG TABLET PO SCH (08:34)
[2023-09-09] MEDS: ASCORBIC ACID 500 MG TABLET PO SCH ×2 (08:34→20:52)
[2023-09-09] MEDS: FUROSEMIDE 20MG/2ML VIAL IVP SCH (08:35)
[2023-09-09] MEDS: LISINOPRIL 2.5MG TABLET PO SCH (08:36)
[2023-09-09 12:00] VITALS: BP 96/61; PULSE 73; RESP 20; TEMP 98.2
[2023-09-10] VITALS: BP 106/80; PULSE 86; RESP 16; TEMP 97.9
[2023-09-10 04:00] VITALS: BP 94/69; PULSE 92; RESP 16; TEMP 97.9
[2023-09-10] MEDS: AMIODARONE HCL 200 MG TABLET PO SCH ×2 (06:00→06:10)
[2023-09-10 08:00] VITALS: BP 101/74; PULSE 93; RESP 19; TEMP 98.2
[2023-09-10] MEDS: ASPIRIN 325MG EC TABLET PO SCH (08:43)
[2023-09-10] MEDS: LISINOPRIL 2.5MG TABLET PO SCH (08:43)
[2023-09-10] MEDS: ZINC SULFATE 220 MG ( 50 ) CAPSULE PO SCH (09:53)
[2023-09-10] MEDS: ASCORBIC ACID 500 MG TABLET PO SCH ×2 (09:53→20:34)
[2023-09-10] MEDS: FAMOTIDINE 20MG TABLET PO SCH (09:53)
[2023-09-10] MEDS: ENOXAPARIN 60MG/0.6ML SYR SUBCUT SCH ×2 (09:54→20:34)
[2023-09-10] MEDS: METOPROLOL SUCCINATE 50MG ER TABLET PO SCH (10:00)
[2023-09-10] MEDS: FUROSEMIDE 20MG/2ML VIAL IVP SCH (10:52)
[2023-09-10 12:57] VITALS: BP 101/76; PULSE 88; RESP 20; TEMP 98.1
[2023-09-10 16:00] VITALS: BP 95/72; PULSE 62; RESP 20; TEMP 98.1
[2023-09-10 20:00] VITALS: BP 95/68; PULSE 80; RESP 16; TEMP 97.9
[2023-09-11] VITALS: BP 96/67; PULSE 87; RESP 16; TEMP 97.7
[2023-09-11 04:00] VITALS: BP 90/66; PULSE 96; RESP 16; TEMP 97.9
[2023-09-11] MEDS: AMIODARONE HCL 200 MG TABLET PO SCH ×2 (05:21→18:41)
[2023-09-11 07:08] LABS: ALANINE AMINOTRANSFERASE 1071 IU/L (10-49); ASPARTATE AMINOTRANSFERASE 366 IU/L (<34); BILIRUBIN TOTAL 1.1 mg/dL (0.1-1.0); CALCIUM 8.5 mg/dL (8.7-10.4); CARBON DIOXIDE 26 mEq/L (21-32); CHLORIDE 101 mEq/L (98-107); CREATININE 0.9 mg/dL (0.6-1.3); GLUCOSE 98 mg/dL (70-105); POTASSIUM 4.4 mEq/L (3.5-5.1); PROTEIN TOTAL 7.6 g/dL (6.0-8.3); SODIUM 134 mEq/L (136-145); UREA NITROGEN BLOOD 31 mg/dL (9-23)
[2023-09-11 07:40] LABS: BASOPHILS % 0.6 % (0.0-2.0); HEMOGLOBIN. 10.1 g/dL (14.0-18.0); LYMPHOCYTES % 16.3 % (20.0-50.0); MEAN CORPUSCULAR HEMOGLOBIN 26.6 pg (28.0-32.0); MEAN CORPUSCULAR VOLUME 91.8 fL (80.0-94.0); MEAN PLATELET VOLUME 10.7 fl (7.4-10.4); MONOCYTES % 9.6 % (2.0-8.0); NEUTROPHILS % 67.5 % (40.0-76.0); RED BLOOD CELL COUNT 3.81 mill/uL (4.7-6.1); RED CELL DISTRIBUTION WIDTH 29.4 % (11.6-14.6)
[2023-09-11 08:00] VITALS: BP 99/70; PULSE 87; RESP 19; TEMP 97.5
[2023-09-11] MEDS: ENOXAPARIN 60MG/0.6ML SYR SUBCUT SCH (08:30)
[2023-09-11] MEDS: LISINOPRIL 2.5MG TABLET PO SCH (08:31)
[2023-09-11] MEDS: ZINC SULFATE 220 MG ( 50 ) CAPSULE PO SCH (08:32)
[2023-09-11] MEDS: FUROSEMIDE 20MG/2ML VIAL IVP SCH (08:33)
[2023-09-11] MEDS: FAMOTIDINE 20MG TABLET PO SCH (08:33)
[2023-09-11] MEDS: METOPROLOL SUCCINATE 50MG ER TABLET PO SCH (08:33)
[2023-09-11] MEDS: ASPIRIN 325MG EC TABLET PO SCH (08:33)
[2023-09-11] MEDS: ASCORBIC ACID 500 MG TABLET PO SCH ×2 (08:33→20:22)
[2023-09-11 09:05] LABS: DIFFERENTIAL COMMENT 1
[2023-09-11 12:00] VITALS: BP 90/69; PULSE 83; RESP 19; TEMP 96.6
[2023-09-11 14:21] LABS: PLATELET 50 x1000/uL (130-400)
[2023-09-11 16:00] VITALS: BP 102/65; PULSE 67; RESP 20; TEMP 95.4
[2023-09-12] MEDS: NITROGLYCERIN 0.4MG TABLET SL SL PRN (03:13)
[2023-09-12 04:00] VITALS: BP 102/77; PULSE 92; RESP 17; TEMP 97.3
[2023-09-12] MEDS: AMIODARONE HCL 200 MG TABLET PO SCH ×2 (05:47→18:00)
[2023-09-12 08:00] VITALS: BP 99/79; PULSE 92; RESP 20; TEMP 97.4
[2023-09-12] MEDS: ASCORBIC ACID 500 MG TABLET PO SCH ×2 (08:59→20:33)
[2023-09-12] MEDS: ASPIRIN 325MG EC TABLET PO SCH (08:59)
[2023-09-12] MEDS: FAMOTIDINE 20MG TABLET PO SCH (08:59)
[2023-09-12] MEDS: ZINC SULFATE 220 MG ( 50 ) CAPSULE PO SCH (08:59)
[2023-09-12] MEDS: FUROSEMIDE 20MG/2ML VIAL IVP SCH (09:00)
[2023-09-12] MEDS: METOPROLOL SUCCINATE 50MG ER TABLET PO SCH (09:00)
[2023-09-12] MEDS: LISINOPRIL 2.5MG TABLET PO SCH (09:00)
[2023-09-12 12:00] VITALS: BP 94/74; PULSE 72; RESP 18; TEMP 97.5
[2023-09-12 16:00] VITALS: BP 100/68; PULSE 80; RESP 18; TEMP 97.8
[2023-09-12 20:00] VITALS: BP 98/69; PULSE 77; RESP 18; TEMP 97.9
[2023-09-13] VITALS: BP 102/75; PULSE 86; RESP 18; TEMP 98.4
[2023-09-13 04:00] VITALS: BP 92/67; PULSE 81; RESP 18; TEMP 97.8
[2023-09-13] MEDS: AMIODARONE HCL 200 MG TABLET PO SCH ×2 (06:00→17:12)
[2023-09-13 08:00] VITALS: BP 103/76; PULSE 86; RESP 18; TEMP 97.5
[2023-09-13] MEDS: FUROSEMIDE 20MG/2ML VIAL IVP SCH (09:00)
[2023-09-13] MEDS: LISINOPRIL 2.5MG TABLET PO SCH (09:00)
[2023-09-13] MEDS: METOPROLOL SUCCINATE 50MG ER TABLET PO SCH (09:00)
[2023-09-13] MEDS: FAMOTIDINE 20MG TABLET PO SCH (09:36)
[2023-09-13] MEDS: ASPIRIN 325MG EC TABLET PO SCH (09:36)
[2023-09-13] MEDS: ZINC SULFATE 220 MG ( 50 ) CAPSULE PO SCH (09:36)
[2023-09-13] MEDS: ASCORBIC ACID 500 MG TABLET PO SCH ×2 (09:36→20:41)
[2023-09-13 12:00] VITALS: BP 102/79; PULSE 85; RESP 18; TEMP 97.3
[2023-09-13 16:00] VITALS: BP 104/81; PULSE 91; RESP 18; TEMP 97.2
[2023-09-13 20:00] VITALS: BP 101/75; PULSE 86; RESP 19; TEMP 97.9
[2023-09-14] VITALS: BP 105/76; PULSE 89; RESP 18; TEMP 97.8
[2023-09-14 04:00] VITALS: BP 101/77; PULSE 91; RESP 18; TEMP 98
[2023-09-14] MEDS: AMIODARONE HCL 200 MG TABLET PO SCH ×2 (06:00→17:13)
[2023-09-14 07:18] LABS: BASOPHILS % 0.9 % (0.0-2.0); HEMATOCRIT. 32.8 % (42.0-52.0); HEMOGLOBIN. 10.2 g/dL (14.0-18.0); LYMPHOCYTES % 17.6 % (20.0-50.0); MEAN CORPUSCULAR HEMOGLOBIN 27.1 pg (28.0-32.0); MEAN CORPUSCULAR VOLUME 87.5 fL (80.0-94.0); MEAN PLATELET VOLUME 11.3 fl (7.4-10.4); MONOCYTES % 7.9 % (2.0-8.0); NEUTROPHILS % 67.6 % (40.0-76.0); PLATELET 84 x1000/uL (130-400); RED BLOOD CELL COUNT 3.75 mill/uL (4.7-6.1); RED CELL DISTRIBUTION WIDTH 27.9 % (11.6-14.6); WHITE BLOOD COUNT 6.4 x1000/uL (4.5-11.0)
[2023-09-14 07:23] LABS: DIFFERENTIAL COMMENT 1
[2023-09-14 07:46] LABS: ALANINE AMINOTRANSFERASE 487 IU/L (10-49); ALBUMIN 2.8 g/dL (3.2-4.8); ASPARTATE AMINOTRANSFERASE 72 IU/L (<34); BILIRUBIN TOTAL 1.4 mg/dL (0.1-1.0); CALCIUM 8.3 mg/dL (8.7-10.4); CARBON DIOXIDE 26 mEq/L (21-32); CHLORIDE 101 mEq/L (98-107); GLUCOSE 84 mg/dL (70-105); POTASSIUM 4.4 mEq/L (3.5-5.1); PROTEIN TOTAL 7.9 g/dL (6.0-8.3); SODIUM 134 mEq/L (136-145); UREA NITROGEN BLOOD 43 mg/dL (9-23)
[2023-09-14 08:00] VITALS: BP 99/75; PULSE 89; RESP 17; TEMP 96.9
[2023-09-14] MEDS: LISINOPRIL 2.5MG TABLET PO SCH (08:20)
[2023-09-14] MEDS: FAMOTIDINE 20MG TABLET PO SCH (08:20)
[2023-09-14] MEDS: FUROSEMIDE 20MG/2ML VIAL IVP SCH (08:20)
[2023-09-14] MEDS: ASPIRIN 325MG EC TABLET PO SCH (08:20)
[2023-09-14] MEDS: METOPROLOL SUCCINATE 50MG ER TABLET PO SCH (08:20)
[2023-09-14] MEDS: ZINC SULFATE 220 MG ( 50 ) CAPSULE PO SCH (08:21)
[2023-09-14] MEDS: ASCORBIC ACID 500 MG TABLET PO SCH ×2 (08:21→21:00)
[2023-09-14 12:00] VITALS: BP 120/96; PULSE 88; RESP 18; TEMP 97.3
[2023-09-14 16:00] VITALS: BP 100/72; PULSE 89; RESP 17; TEMP 96.9
[2023-09-14 20:00] VITALS: BP 99/55; PULSE 87; RESP 16; TEMP 98.9
[2023-09-15] MEDS: NITROGLYCERIN 0.4MG TABLET SL SL PRN (00:19)
[2023-09-15 04:00] VITALS: BP 100/74; PULSE 86; RESP 16; TEMP 98.1
[2023-09-15] MEDS: AMIODARONE HCL 200 MG TABLET PO SCH ×2 (06:00→16:52)
[2023-09-15 08:00] VITALS: BP 107/75; PULSE 85; RESP 19; TEMP 97.5
[2023-09-15] MEDS: FUROSEMIDE 20MG/2ML VIAL IVP SCH (08:51)
[2023-09-15] MEDS: LISINOPRIL 2.5MG TABLET PO SCH (08:51)
[2023-09-15] MEDS: ASPIRIN 325MG EC TABLET PO SCH (08:52)
[2023-09-15] MEDS: ASCORBIC ACID 500 MG TABLET PO SCH ×2 (08:52→20:36)
[2023-09-15] MEDS: FAMOTIDINE 20MG TABLET PO SCH (08:52)
[2023-09-15] MEDS: ZINC SULFATE 220 MG ( 50 ) CAPSULE PO SCH (08:52)
[2023-09-15] MEDS: METOPROLOL SUCCINATE 50MG ER TABLET PO SCH (08:52)
[2023-09-15 12:00] VITALS: BP 110/78; PULSE 105; RESP 18; TEMP 97.6
[2023-09-15 16:00] VITALS: BP 119/72; PULSE 94; RESP 19; TEMP 97.1
[2023-09-15 20:00] VITALS: BP 106/80; PULSE 84; RESP 19; TEMP 97.5
[2023-09-15 21:53] VITALS: PULSE 104; RESP 20; O2SAT 94
[2023-09-15] MEDS: IPRATROPIUM/ALBUTEROL 0.5-3(2.5)MG/3ML NEB HHN PRN (21:53)
[2023-09-16] VITALS (8 sets, daily range): BP systolic 91–117; BP diastolic 61–82; PULSE 54–107; RESP 18–20; TEMP 96.4–100.8; O2SAT 90–92
[2023-09-16] MEDS ORDERED: IPRATROPIUM/ALBUTEROL 0.5-3(2.5)MG/3ML NEB HHN SCH
[2023-09-16] MEDS: IPRATROPIUM/ALBUTEROL 0.5-3(2.5)MG/3ML NEB HHN PRN ×2 (05:00→22:02)
[2023-09-16] MEDS: AMIODARONE HCL 200 MG TABLET PO SCH ×3 (06:16→18:48)
[2023-09-16] MEDS: METOPROLOL SUCCINATE 50MG ER TABLET PO SCH (08:44)
[2023-09-16] MEDS: ASCORBIC ACID 500 MG TABLET PO SCH ×2 (08:44→20:41)
[2023-09-16] MEDS: FUROSEMIDE 20MG/2ML VIAL IVP SCH (08:44)
[2023-09-16] MEDS: LISINOPRIL 2.5MG TABLET PO SCH (08:44)
[2023-09-16] MEDS: ASPIRIN 325MG EC TABLET PO SCH (08:44)
[2023-09-16] MEDS: FAMOTIDINE 20MG TABLET PO SCH (08:45)
[2023-09-16] MEDS: ZINC SULFATE 220 MG ( 50 ) CAPSULE PO SCH (08:45)
[2023-09-16 10:49] LABS: BASOPHILS % 0.7 % (0.0-2.0); EOSINOPHILS % 5.7 % (0.0-5.0); HEMATOCRIT. 36.1 % (42.0-52.0); HEMOGLOBIN. 10.7 g/dL (14.0-18.0); LYMPHOCYTES % 11.9 % (20.0-50.0); MEAN CORPUSCULAR HEMOGLOBIN 27.2 pg (28.0-32.0); MEAN CORPUSCULAR HGB CONC 29.6 g/dL (31.0-37.0); MEAN CORPUSCULAR VOLUME 91.6 fL (80.0-94.0); MEAN PLATELET VOLUME 10.4 fl (7.4-10.4); MONOCYTES % 6.4 % (2.0-8.0); NEUTROPHILS % 75.3 % (40.0-76.0); PLATELET 122 x1000/uL (130-400); RED BLOOD CELL COUNT 3.94 mill/uL (4.7-6.1); RED CELL DISTRIBUTION WIDTH 28.3 % (11.6-14.6); WHITE BLOOD COUNT 6.3 x1000/uL (4.5-11.0)
[2023-09-16 10:55] LABS: DIFFERENTIAL COMMENT 1
[2023-09-16] MEDS: NITROGLYCERIN 0.4MG TABLET SL SL PRN (22:26)
[2023-09-17] VITALS (8 sets, daily range): BP systolic 94–113; BP diastolic 63–78; PULSE 97–108; RESP 17–20; TEMP 97.2–98.4; O2SAT 92
[2023-09-17] MEDS: IPRATROPIUM/ALBUTEROL 0.5-3(2.5)MG/3ML NEB HHN PRN ×2 (02:00→16:54)
[2023-09-17] MEDS: AMIODARONE HCL 200 MG TABLET PO SCH ×2 (06:15→17:14)
[2023-09-17] MEDS: ASPIRIN 325MG EC TABLET PO SCH (08:05)
[2023-09-17] MEDS: ZINC SULFATE 220 MG ( 50 ) CAPSULE PO SCH (08:05)
[2023-09-17] MEDS: LISINOPRIL 2.5MG TABLET PO SCH (08:05)
[2023-09-17] MEDS: FUROSEMIDE 20MG/2ML VIAL IVP SCH (08:05)
[2023-09-17] MEDS: FAMOTIDINE 20MG TABLET PO SCH (08:06)
[2023-09-17] MEDS: ASCORBIC ACID 500 MG TABLET PO SCH ×2 (08:06→21:00)
[2023-09-17] MEDS: METOPROLOL SUCCINATE 50MG ER TABLET PO SCH (08:06)
[2023-09-17 11:38] LABS: ALANINE AMINOTRANSFERASE 218 IU/L (10-49); ALBUMIN 2.9 g/dL (3.2-4.8); ASPARTATE AMINOTRANSFERASE 40 IU/L (<34); BILIRUBIN TOTAL 1.4 mg/dL (0.1-1.0); CALCIUM 8.4 mg/dL (8.7-10.4); CARBON DIOXIDE 21 mEq/L (21-32); CHLORIDE 102 mEq/L (98-107); CREATININE 0.8 mg/dL (0.6-1.3); GLUCOSE 96 mg/dL (70-105); POTASSIUM 3.7 mEq/L (3.5-5.1); PROTEIN TOTAL 8.3 g/dL (6.0-8.3); SODIUM 136 mEq/L (136-145); TROPONIN I HIGH SENSITIVITY 38 ng/L (3.0-53); UREA NITROGEN BLOOD 29 mg/dL (9-23)
[2023-09-17] MEDS: ENOXAPARIN 60MG/0.6ML SYR SUBCUT SCH ×2 (14:48→21:00)
[2023-09-18] VITALS (8 sets, daily range): BP systolic 86–118; BP diastolic 61–88; PULSE 81–101; RESP 18–22; TEMP 96.7–99.5; O2SAT 94
[2023-09-18] MEDS: AMIODARONE HCL 200 MG TABLET PO SCH ×2 (06:00→18:00)
[2023-09-18 07:30] LABS: BASOPHILS % 0.7 % (0.0-2.0); EOSINOPHILS % 5.9 % (0.0-5.0); HEMATOCRIT. 34.9 % (42.0-52.0); HEMOGLOBIN. 10.8 g/dL (14.0-18.0); LYMPHOCYTES % 19.6 % (20.0-50.0); MEAN CORPUSCULAR HEMOGLOBIN 27.9 pg (28.0-32.0); MEAN CORPUSCULAR HGB CONC 30.9 g/dL (31.0-37.0); MEAN CORPUSCULAR VOLUME 90.2 fL (80.0-94.0); MEAN PLATELET VOLUME 10.1 fl (7.4-10.4); MONOCYTES % 5.7 % (2.0-8.0); NEUTROPHILS % 68.1 % (40.0-76.0); PLATELET 190 x1000/uL (130-400); RED BLOOD CELL COUNT 3.87 mill/uL (4.7-6.1); RED CELL DISTRIBUTION WIDTH 26.5 % (11.6-14.6); WHITE BLOOD COUNT 6.7 x1000/uL (4.5-11.0)
[2023-09-18 08:40] LABS: DIFFERENTIAL COMMENT 1
[2023-09-18] MEDS: METOPROLOL SUCCINATE 50MG ER TABLET PO SCH (09:00)
[2023-09-18] MEDS: FUROSEMIDE 20MG/2ML VIAL IVP SCH (09:00)
[2023-09-18] MEDS: LISINOPRIL 2.5MG TABLET PO SCH (09:00)
[2023-09-18] MEDS: ZINC SULFATE 220 MG ( 50 ) CAPSULE PO SCH (09:17)
[2023-09-18] MEDS: ASPIRIN 325MG EC TABLET PO SCH (09:17)
[2023-09-18] MEDS: FAMOTIDINE 20MG TABLET PO SCH (09:17)
[2023-09-18] MEDS: ASCORBIC ACID 500 MG TABLET PO SCH (09:17)
[2023-09-18] MEDS: ENOXAPARIN 60MG/0.6ML SYR SUBCUT SCH ×2 (09:17→21:00)
[2023-09-18] MEDS: IPRATROPIUM/ALBUTEROL 0.5-3(2.5)MG/3ML NEB HHN PRN ×2 (09:30→17:40)
[2023-09-19] VITALS (10 sets, daily range): BP systolic 90–114; BP diastolic 61–79; PULSE 60–99; RESP 18–24; TEMP 95.6–98.6; O2SAT 95
[2023-09-19] MEDS: AMIODARONE HCL 200 MG TABLET PO SCH (06:00)
[2023-09-19] MEDS: LISINOPRIL 2.5MG TABLET PO SCH (08:26)
[2023-09-19] MEDS: FUROSEMIDE 20MG/2ML VIAL IVP SCH (08:26)
[2023-09-19] MEDS: ENOXAPARIN 60MG/0.6ML SYR SUBCUT SCH ×2 (08:26→20:53)
[2023-09-19] MEDS: METOPROLOL SUCCINATE 50MG ER TABLET PO SCH (08:26)
[2023-09-19] MEDS: IPRATROPIUM/ALBUTEROL 0.5-3(2.5)MG/3ML NEB HHN PRN ×4 (09:40→22:14)
[2023-09-20] VITALS (8 sets, daily range): BP systolic 88–107; BP diastolic 60–70; PULSE 72–101; RESP 17–22; TEMP 96.9–97.9; O2SAT 95
[2023-09-20] MEDS: AMIODARONE HCL 200 MG TABLET PO SCH ×2 (05:07→18:01)
[2023-09-20] MEDS: IPRATROPIUM/ALBUTEROL 0.5-3(2.5)MG/3ML NEB HHN PRN ×3 (05:13→23:41)
[2023-09-20 07:46] LABS: BASOPHILS % 0.9 % (0.0-2.0); EOSINOPHILS % 8.9 % (0.0-5.0); HEMATOCRIT. 35.1 % (42.0-52.0); HEMOGLOBIN. 10.3 g/dL (14.0-18.0); MEAN CORPUSCULAR HEMOGLOBIN 27.1 pg (28.0-32.0); MEAN CORPUSCULAR HGB CONC 29.3 g/dL (31.0-37.0); MEAN CORPUSCULAR VOLUME 92.4 fL (80.0-94.0); MEAN PLATELET VOLUME 9.2 fl (7.4-10.4); MONOCYTES % 5.2 % (2.0-8.0); PLATELET 219 x1000/uL (130-400); RED BLOOD CELL COUNT 3.79 mill/uL (4.7-6.1); RED CELL DISTRIBUTION WIDTH 26.3 % (11.6-14.6); WHITE BLOOD COUNT 6.3 x1000/uL (4.5-11.0)
[2023-09-20 08:00] LABS: ADD RBC MORPHOLOGY YES; DIFFERENTIAL COMMENT 1
[2023-09-20 08:05] LABS: ALANINE AMINOTRANSFERASE 112 IU/L (10-49); ALBUMIN 2.7 g/dL (3.2-4.8); ASPARTATE AMINOTRANSFERASE 30 IU/L (<34); CALCIUM 8.6 mg/dL (8.7-10.4); CARBON DIOXIDE 19 mEq/L (21-32); CHLORIDE 102 mEq/L (98-107); CREATININE 1.2 mg/dL (0.6-1.3); GLUCOSE 106 mg/dL (70-105); POTASSIUM 3.4 mEq/L (3.5-5.1); SODIUM 135 mEq/L (136-145); UREA NITROGEN BLOOD 45 mg/dL (9-23)
[2023-09-20] MEDS: LISINOPRIL 2.5MG TABLET PO SCH (08:45)
[2023-09-20] MEDS: ENOXAPARIN 60MG/0.6ML SYR SUBCUT SCH ×2 (08:45→20:39)
[2023-09-20] MEDS: METOPROLOL SUCCINATE 50MG ER TABLET PO SCH (08:46)
[2023-09-20 14:24] LABS: PLATELET ESTIMATE NORMAL
[2023-09-20 14:25] LABS: ANISOCYTOSIS 2+
[2023-09-20] MEDS ORDERED: POTASSIUM CHLORIDE 20MEQ TABLET SR PO NR (15:00)
[2023-09-20 22:54] LABS: PHOSPHORUS 4.1 mg/dL (2.5-4.9)
[2023-09-21] VITALS (8 sets, daily range): BP systolic 90–104; BP diastolic 49–80; PULSE 62–96; RESP 18–20; TEMP 95.1–97.3
[2023-09-21] MEDS: AMIODARONE HCL 200 MG TABLET PO SCH ×2 (05:09→19:38)
[2023-09-21] MEDS: METOPROLOL SUCCINATE 50MG ER TABLET PO SCH (09:06)
[2023-09-21] MEDS: LISINOPRIL 2.5MG TABLET PO SCH (09:07)
[2023-09-21] MEDS: ENOXAPARIN 60MG/0.6ML SYR SUBCUT SCH ×2 (09:08→21:28)
[2023-09-21] MEDS: IPRATROPIUM/ALBUTEROL 0.5-3(2.5)MG/3ML NEB HHN PRN ×2 (10:48→16:16)
[2023-09-21] MEDS ORDERED: ACETAMINOPHEN 325MG TABLET PO PRN (11:45)
[2023-09-22] VITALS (7 sets, daily range): BP systolic 91–110; BP diastolic 62–78; PULSE 51–91; RESP 17–28; TEMP 96.1–97.3; O2SAT 94
[2023-09-22] MEDS: AMIODARONE HCL 200 MG TABLET PO SCH (06:00)
[2023-09-22] MEDS: LISINOPRIL 2.5MG TABLET PO SCH ×2 (09:00→10:32)
[2023-09-22] MEDS: ENOXAPARIN 60MG/0.6ML SYR SUBCUT SCH ×2 (10:31→21:19)
[2023-09-22] MEDS: METOPROLOL SUCCINATE 50MG ER TABLET PO SCH (10:32)
[2023-09-22] MEDS: IPRATROPIUM/ALBUTEROL 0.5-3(2.5)MG/3ML NEB HHN PRN (11:26)
[2023-09-23] VITALS: BP 94/57; PULSE 69; RESP 18; TEMP 97.2
[2023-09-23 04:00] VITALS: BP 93/62; PULSE 75; RESP 18; TEMP 96.9
[2023-09-23] MEDS: AMIODARONE HCL 200 MG TABLET PO SCH (06:34)
[2023-09-23 06:46] LABS: BASOPHILS % 0.8 % (0.0-2.0); EOSINOPHILS % 5.3 % (0.0-5.0); HEMATOCRIT. 32.9 % (42.0-52.0); HEMOGLOBIN. 9.6 g/dL (14.0-18.0); LYMPHOCYTES % 13.9 % (20.0-50.0); MEAN CORPUSCULAR HGB CONC 29.1 g/dL (31.0-37.0); MEAN CORPUSCULAR VOLUME 92.7 fL (80.0-94.0); MEAN PLATELET VOLUME 9.8 fl (7.4-10.4); PLATELET 248 x1000/uL (130-400); RED BLOOD CELL COUNT 3.55 mill/uL (4.7-6.1); RED CELL DISTRIBUTION WIDTH 25.9 % (11.6-14.6); WHITE BLOOD COUNT 11.3 x1000/uL (4.5-11.0)
[2023-09-23 06:59] LABS: DIFFERENTIAL COMMENT 1
[2023-09-23 07:16] LABS: ALANINE AMINOTRANSFERASE 93 IU/L (10-49); ALBUMIN 2.6 g/dL (3.2-4.8); ASPARTATE AMINOTRANSFERASE 83 IU/L (<34); BILIRUBIN TOTAL 0.9 mg/dL (0.1-1.0); CALCIUM 8.5 mg/dL (8.7-10.4); CARBON DIOXIDE 17 mEq/L (21-32); CHLORIDE 104 mEq/L (98-107); GLUCOSE 73 mg/dL (70-105); POTASSIUM 4.3 mEq/L (3.5-5.1); PROTEIN TOTAL 7.9 g/dL (6.0-8.3); SODIUM 139 mEq/L (136-145); UREA NITROGEN BLOOD 84 mg/dL (9-23)
[2023-09-23 07:17] LABS: CREATININE 2.2 mg/dL (0.6-1.3)
[2023-09-23 08:00] VITALS: BP 59/36; PULSE 78; RESP 16; TEMP 97.4
[2023-09-23] MEDS: METOPROLOL SUCCINATE 50MG ER TABLET PO SCH (09:00)
[2023-09-23] MEDS: ENOXAPARIN 60MG/0.6ML SYR SUBCUT SCH ×2 (09:00→21:48)
[2023-09-23] MEDS ORDERED: SODIUM CHLORIDE 0.9% 500 ML IV ONE (10:00)
[2023-09-23] MEDS: MIDODRINE HCL 5MG TABLET PO SCH ×3 (11:30→18:53)
[2023-09-23] MEDS ORDERED: METHYLPREDNISOLONE SOD SUCC 40MG/ML (ACT-O-VIAL) IV NR (11:30)
[2023-09-23] MEDS ORDERED: SODIUM CHLORIDE 0.9% 1,000 ML IV ONE (12:00)
[2023-09-23 12:02] VITALS: BP 87/53; PULSE 56; RESP 16; TEMP 97.2
[2023-09-23] MEDS: PIPERACILLIN/TAZOBACTAM 3.375 G in DEXTROSE 5% WATER 50 ML IV SCH ×2 (13:30→21:48)
[2023-09-23 16:00] VITALS: BP 85/60; PULSE 52; RESP 16; TEMP 97
[2023-09-23] MEDS ORDERED: SODIUM CHLORIDE 10% FOR INH 15ML VIAL NEB INH NR (17:00)
[2023-09-23] MEDS: PREDNISONE 20MG TABLET PO SCH (18:53)
[2023-09-23 20:00] VITALS: BP 91/62; PULSE 66; RESP 18; TEMP 96.7
[2023-09-24] VITALS (7 sets, daily range): BP systolic 86–107; BP diastolic 51–89; PULSE 60–77; RESP 18–22; TEMP 95.9–97.3
[2023-09-24] MEDS: PIPERACILLIN/TAZOBACTAM 3.375 G in DEXTROSE 5% WATER 50 ML IV SCH ×3 (05:09→21:56)
[2023-09-24] MEDS: METOPROLOL SUCCINATE 50MG ER TABLET PO SCH (09:00)
[2023-09-24] MEDS ORDERED: AMIODARONE HCL 200 MG TABLET PO SCH (09:00)
[2023-09-24] MEDS: PREDNISONE 20MG TABLET PO SCH ×2 (09:11→17:21)
[2023-09-24] MEDS: MIDODRINE HCL 5MG TABLET PO SCH ×3 (09:12→17:21)
[2023-09-24] MEDS: ENOXAPARIN 60MG/0.6ML SYR SUBCUT SCH ×2 (09:13→21:56)
[2023-09-24 10:48] LABS: BASOPHILS % 0.6 % (0.0-2.0); EOSINOPHILS % 0.2 % (0.0-5.0); HEMATOCRIT. 36.4 % (42.0-52.0); HEMOGLOBIN. 11.4 g/dL (14.0-18.0); LYMPHOCYTES % 13.2 % (20.0-50.0); MEAN CORPUSCULAR HEMOGLOBIN 27.6 pg (28.0-32.0); MEAN CORPUSCULAR HGB CONC 31.3 g/dL (31.0-37.0); MEAN CORPUSCULAR VOLUME 88.2 fL (80.0-94.0); MEAN PLATELET VOLUME 9.5 fl (7.4-10.4); MONOCYTES % 2.2 % (2.0-8.0); NEUTROPHILS % 83.8 % (40.0-76.0); PLATELET 183 x1000/uL (130-400); RED BLOOD CELL COUNT 4.13 mill/uL (4.7-6.1); WHITE BLOOD COUNT 5.5 x1000/uL (4.5-11.0)
[2023-09-24 11:02] LABS: DIFFERENTIAL COMMENT 1
[2023-09-24 12:31] LABS: ALANINE AMINOTRANSFERASE 82 IU/L (10-49); ALBUMIN 2.7 g/dL (3.2-4.8); ASPARTATE AMINOTRANSFERASE 57 IU/L (<34); BILIRUBIN TOTAL 0.6 mg/dL (0.1-1.0); CALCIUM 8.8 mg/dL (8.7-10.4); CARBON DIOXIDE 20 mEq/L (21-32); CHLORIDE 105 mEq/L (98-107); CREATININE 2.5 mg/dL (0.6-1.3); GLUCOSE 151 mg/dL (70-105); PHOSPHORUS 6.2 mg/dL (2.5-4.9); POTASSIUM 4.2 mEq/L (3.5-5.1); PROTEIN TOTAL 7.8 g/dL (6.0-8.3); SODIUM 141 mEq/L (136-145); UREA NITROGEN BLOOD 96 mg/dL (9-23)
[2023-09-24] MEDS: IPRATROPIUM/ALBUTEROL 0.5-3(2.5)MG/3ML NEB HHN PRN (21:59)
[2023-09-25] VITALS (9 sets, daily range): BP systolic 84–100; BP diastolic 63–82; PULSE 70–95; RESP 18–34; TEMP 94.6–98.6
[2023-09-25] MEDS: PIPERACILLIN/TAZOBACTAM 3.375 G in DEXTROSE 5% WATER 50 ML IV SCH ×3 (06:33→22:52)
[2023-09-25 07:36] LABS: HEMATOCRIT. 39.6 % (42.0-52.0); HEMOGLOBIN. 11.8 g/dL (14.0-18.0); MEAN CORPUSCULAR HEMOGLOBIN 27.6 pg (28.0-32.0); MEAN CORPUSCULAR HGB CONC 29.9 g/dL (31.0-37.0); MEAN CORPUSCULAR VOLUME 92.4 fL (80.0-94.0); MEAN PLATELET VOLUME 9.9 fl (7.4-10.4); PLATELET 145 x1000/uL (130-400); RED BLOOD CELL COUNT 4.29 mill/uL (4.7-6.1); RED CELL DISTRIBUTION WIDTH 25.8 % (11.6-14.6); WHITE BLOOD COUNT 5.4 x1000/uL (4.5-11.0)
[2023-09-25 08:02] LABS: CALCIUM 9.1 mg/dL (8.7-10.4); CARBON DIOXIDE 15 mEq/L (21-32); CHLORIDE 104 mEq/L (98-107); CREATINE KINASE 61 IU/L (46-171); CREATININE 2.7 mg/dL (0.6-1.3); GLUCOSE 114 mg/dL (70-105); PHOSPHORUS 7.1 mg/dL (2.5-4.9); POTASSIUM 5.2 mEq/L (3.5-5.1); SODIUM 140 mEq/L (136-145); UREA NITROGEN BLOOD 83 mg/dL (9-23)
[2023-09-25] MEDS: METOPROLOL SUCCINATE 50MG ER TABLET PO SCH (09:00)
[2023-09-25] MEDS: ENOXAPARIN 60MG/0.6ML SYR SUBCUT SCH (09:00)
[2023-09-25] MEDS: PREDNISONE 20MG TABLET PO SCH (09:05)
[2023-09-25] MEDS ORDERED: CITRIC ACID/SODIUM CITRATE SOLN 30ML UDC PO SCH (09:30)
[2023-09-25] MEDS: MIDODRINE HCL 5MG TABLET PO SCH ×3 (09:38→17:46)
[2023-09-25 09:39] LABS: DIFFERENTIAL COMMENT 1
[2023-09-25 10:43] LABS: BG BASE EXCESS -8.3 mmol/L (-2.0-2.0); BG CARBOXYHEMOGLOBIN 0.7 % (0.5-1.5); BG DEOXYHEMOGLOBIN 15.4 % (0.0-5.0); BG FRACTION INSPIRED OXYGEN 44; BG HCO3 ACT 16.7 mmol/L (22.0-26.0); BG METHEMOGLOBIN 0.5 % (0.0-1.5); BG OXYGEN SATURATION 84.4 % (92.0-98.5); BG OXYHEMOGLOBIN 83.4 % (94.0-97.0); BG PH 7.323 (7.350-7.450); BG PO2 55.3 mmHg (75.0-100.0); BG SAMPLE SITE RIGHT RADIAL; BG TOTAL HEMOGLOBIN 11.9 g/dL (12.0-18.0); BG VENT MODE NASAL CANNULA
[2023-09-25 12:13] LABS: CLARITY URINE TURBID (CLEAR); COLOR URINE DARK YELLOW (YELLOW); GLUCOSE URINE NEGATIVE (NEGATIVE); KETONES URINE NEGATIVE (NEGATIVE); LEUKOCYTE ESTERASE URINE NEGATIVE (NEGATIVE); NITRITE URINE NEGATIVE (NEGATIVE); OCCULT BLOOD URINE NEGATIVE (NEGATIVE); PROTEIN URINE 2+ (NEGATIVE); SPECIFIC GRAVITY URINE 1.024 (1.005-1.030)
[2023-09-25 12:52] LABS: SQUAMOUS EPITHELIAL CELL URINE RARE /lpf (RARE/1+)
[2023-09-25 12:53] LABS: BACTERIA URINE 4+
[2023-09-25 12:54] LABS: AMORPHOUS SEDIMENT URINE 2+ /lpf
[2023-09-25 13:59] LABS: POTASSIUM 4.7 mEq/L (3.5-5.1)
[2023-09-25 14:11] LABS: LACTIC ACID 4.9 mmol/L (0.4-2.0)
[2023-09-25] MEDS: METHYLPREDNISOLONE SOD SUCC 40MG/ML (ACT-O-VIAL) IV SCH ×2 (18:12→21:51)
[2023-09-26] VITALS (49 sets, daily range): BP systolic 30–94; BP diastolic 15–77; PULSE 0–137; RESP 0–40; TEMP 96.6–97.6
[2023-09-26 05:36] LABS: NUCLEATED RED BLOOD CELLS 5 /100 WBC
[2023-09-26 05:37] LABS: ANISOCYTOSIS 2+; PLATELET ESTIMATE NORMAL
[2023-09-26] MEDS: METHYLPREDNISOLONE SOD SUCC 40MG/ML (ACT-O-VIAL) IV SCH ×2 (06:29→15:55)
[2023-09-26] MEDS: PIPERACILLIN/TAZOBACTAM 3.375 G in DEXTROSE 5% WATER 50 ML IV SCH ×2 (06:30→15:55)
[2023-09-26] MEDS: METOPROLOL SUCCINATE 50MG ER TABLET PO SCH (08:06)
[2023-09-26 08:13] LABS: HEMATOCRIT. 35.9 % (42.0-52.0); HEMOGLOBIN. 10.9 g/dL (14.0-18.0); MEAN CORPUSCULAR HEMOGLOBIN 27.4 pg (28.0-32.0); MEAN CORPUSCULAR HGB CONC 30.2 g/dL (31.0-37.0); MEAN CORPUSCULAR VOLUME 90.6 fL (80.0-94.0); PLATELET 140 x1000/uL (130-400); RED BLOOD CELL COUNT 3.96 mill/uL (4.7-6.1); RED CELL DISTRIBUTION WIDTH 25.6 % (11.6-14.6); WHITE BLOOD COUNT 6.5 x1000/uL (4.5-11.0)
[2023-09-26 08:56] LABS: CALCIUM 8.8 mg/dL (8.7-10.4); CARBON DIOXIDE 13 mEq/L (21-32); CHLORIDE 105 mEq/L (98-107); CREATININE 3.2 mg/dL (0.6-1.3); GLUCOSE 83 mg/dL (70-105); POTASSIUM 6.1 mEq/L (3.5-5.1); SODIUM 139 mEq/L (136-145)
[2023-09-26] MEDS ORDERED: ENOXAPARIN 60MG/0.6ML SYR SUBCUT SCH (09:00)
[2023-09-26 09:15] LABS: DIFFERENTIAL COMMENT 1
[2023-09-26] MEDS ORDERED: DOPAMINE 400MG/250ML PREMIX 250 ML IV ONE (09:39)
[2023-09-26] MEDS ORDERED: PANTOPRAZOLE SODIUM 40 MG/VIAL IV SCH (10:00)
[2023-09-26] MEDS ORDERED: IPRATROPIUM/ALBUTEROL 0.5-3(2.5)MG/3ML NEB HHN PRN (10:00)
[2023-09-26] MEDS ORDERED: DOBUTAMINE 250MG PREMIX 250 ML IV PRN ×2 (10:15→16:15)
[2023-09-26] MEDS ORDERED: NOREPINEPHRINE 32 MG in DEXT 5% WATER 218 ML IV PRN (10:45)
[2023-09-26 12:02] LABS: BG BASE EXCESS -17.7 mmol/L (-2.0-2.0); BG CARBOXYHEMOGLOBIN 0.9 % (0.5-1.5); BG DEOXYHEMOGLOBIN 8.4 % (0.0-5.0); BG FRACTION INSPIRED OXYGEN 100; BG HCO3 ACT 12.1 mmol/L (22.0-26.0); BG METHEMOGLOBIN 0.6 % (0.0-1.5); BG OXYGEN SATURATION 91.5 % (92.0-98.5); BG OXYHEMOGLOBIN 90.1 % (94.0-97.0); BG PCO2 44.5 mmHg (35.0-45.0); BG PH 7.052 (7.350-7.450); BG PO2 81.1 mmHg (75.0-100.0); BG SAMPLE SITE LEFT RADIAL; BG TOTAL HEMOGLOBIN 11.8 g/dL (12.0-18.0); BG VENT MODE VENT - AC
[2023-09-26] MEDS ORDERED: SODIUM BICARBONATE 8.4% 1 MEQ/ML 50ML SYR IV SCH (12:15)
[2023-09-26] MEDS: MIDODRINE HCL 5MG TABLET PO SCH ×2 (12:48→17:22)
[2023-09-26] MEDS: CITRIC ACID/SODIUM CITRATE SOLN 15ML UDC PO SCH ×2 (12:49→17:20)
[2023-09-26 13:36] LABS: PHOSPHORUS 9.6 mg/dL (2.5-4.9); UREA NITROGEN BLOOD 116 mg/dL (9-23)
[2023-09-26 13:55] LABS: ANISOCYTOSIS 2+; NUCLEATED RED BLOOD CELLS 4 /100 WBC; PLATELET ESTIMATE NORMAL
[2023-09-26] MEDS ORDERED: SODIUM BICARBONATE 150 MEQ in DEXTROSE 5% WATER 1,000 ML IV SCH (14:00)
[2023-09-26] MEDS ORDERED: SODIUM POLYSTYRENE SULFONATE 15 G/60 ML BOT PO NR (15:00)
[2023-09-26] MEDS ORDERED: DOPAMINE 400MG/250ML PREMIX 250 ML IV PRN (16:00)
[2023-09-26] MEDS ORDERED: PHENYLEPHRINE 100 MG in DEXT 5% WATER 240 ML IV PRN (16:15)
[2023-09-26] MEDS ORDERED: EPINEPHRINE 10 MG in SODIUM CHLORIDE 0.9% 240 ML IV PRN (16:45)
[2023-09-26 17:29] LABS: BG BASE EXCESS -19.6 mmol/L (-2.0-2.0); BG CARBOXYHEMOGLOBIN 0.7 % (0.5-1.5); BG DEOXYHEMOGLOBIN 2.8 % (0.0-5.0); BG FRACTION INSPIRED OXYGEN 100; BG HCO3 ACT 13.1 mmol/L (22.0-26.0); BG METHEMOGLOBIN 0.7 % (0.0-1.5); BG OXYGEN SATURATION 97.2 % (92.0-98.5); BG OXYHEMOGLOBIN 95.8 % (94.0-97.0); BG PCO2 66.6 mmHg (35.0-45.0); BG PH 6.913 (7.350-7.450); BG PO2 136.6 mmHg (75.0-100.0); BG SAMPLE SITE RIGHT BRACHIAL; BG TOTAL HEMOGLOBIN 11.3 g/dL (12.0-18.0); BG VENT MODE VENT - AC
[2023-09-26] MEDS ORDERED: MORPHINE SULFATE 10 MG/ML CPJ IV NR (18:00)
[2023-09-26] MEDS ORDERED: MORPHINE SULFATE 4 MG/ML CPJ (NOT FOR IM USE) IV PRN (18:00)
== END 2023-09-26 19:50 | DRG 720 ==
LOC: ER 04:47 → 5EST 05:05 → EDBEDREQ 06:06 → EDBEDREQTM 06:06 → EDBEDREQSVC 06:06 → 5WST 08-30 03:30 → 6EST 09-02 01:42 → 5EST 09-25 13:52 → MICUSO 09-26 10:27
PROVIDERS: ADMIT Internal Medicine; ATTEND Internal Medicine
PROC: 5A09357 Assistance with Respiratory Ventilation, Less than 24 Consecutive Hours, Continuous Positive Airway Pressure (ICD-10-PCS; 2023-08-21)
PROC: 5A0935A Assistance with Respiratory Ventilation, Less than 24 Consecutive Hours, High Flow/Velocity Cannula (ICD-10-PCS; 2023-09-25)
PROC: 5A1935Z Respiratory Ventilation, Less than 24 Consecutive Hours (ICD-10-PCS; principal; 2023-09-26)
PROC: 5A12012 Performance of Cardiac Output, Single, Manual (ICD-10-PCS; 2023-09-26)
PROC: 0BH17EZ Insertion of Endotracheal Airway into Trachea, Via Natural or Artificial Opening (ICD-10-PCS; 2023-09-26)
DX: A41.9 Sepsis, unspecified organism (principal); N17.0 Acute kidney failure with tubular necrosis; J96.21 Acute and chronic respiratory failure with hypoxia; R57.0 Cardiogenic shock; G93.40 Encephalopathy, unspecified; D69.6 Thrombocytopenia, unspecified; E87.4 Mixed disorder of acid-base balance; J18.9 Pneumonia, unspecified organism; I46.2 Cardiac arrest due to underlying cardiac condition; I50.43 Acute on chronic combined systolic (congestive) and diastolic (congestive) heart failure; I21.A1 Myocardial infarction type 2; J47.0 Bronchiectasis with acute lower respiratory infection; I11.0 Hypertensive heart disease with heart failure; J44.1 Chronic obstructive pulmonary disease with (acute) exacerbation; E78.5 Hyperlipidemia, unspecified; I45.10 Unspecified right bundle-branch block; M06.9 Rheumatoid arthritis, unspecified; I48.91 Unspecified atrial fibrillation; J44.0 Chronic obstructive pulmonary disease with (acute) lower respiratory infection; D64.9 Anemia, unspecified; I08.1 Rheumatic disorders of both mitral and tricuspid valves; R74.01 Elevation of levels of liver transaminase levels; E80.6 Other disorders of bilirubin metabolism; J84.10 Pulmonary fibrosis, unspecified; R65.20 Severe sepsis without septic shock; Z82.49 Family history of ischemic heart disease and other diseases of the circulatory system; Z99.81 Dependence on supplemental oxygen; Z95.0 Presence of cardiac pacemaker; Z79.899 Other long term (current) drug therapy
CPT/HCPCS: 36415; 36600; 71045; 71275; 76770; 80048; 80053; 80061; 80162; 80202; 81003; 82375; 82550; 82553; 82607; 82805; 82962; 83036; 83605; 83735; 83880; 84100; 84132; 84439; 84443; 84484; 85025; 85027; 85379; 86022; 86705; 87340; 87426; 87804; 93005; 93306; 93970; 94640; 94660; 94664; 97162; 97166; 97535; 99291; A6261; C9113; C9803; J0456; J0696; J1160; J1250; J1265; J1650; J1940; J2060; J2250; J2270; J2405; J2543; J2920; J2930; J3370; J3475; J3490; J7030; J7060; J7070; J7131; J7512; J7626; Q9967